=== PATIENT | female | born 1990 | race Caucasian/White ===

== ENCOUNTER 2021-02-10 18:58 | Emergency (ER) | payer SELFPAY ==
[~2021-02-10] VITALS: Ht 167.6 cm; Wt 86.3 kg
--- NOTE | 2021-02-10 21:42 | PHYS DOC ---
Past Medical History Past Medical History shoulder dislocation Past Surgical History: Other Additional Past Surgical Histo: OPEN DISLOCATION TO THE RIGHT SHOULDER. Alcohol Use: None Drug Use: None General Adult EDM: Chief Complaint: SHOULDER INJURY HPI: HPI: 30-year-old female with a history of left shoulder dislocation, shoulder surgery on the left presents the emergency department complaining of deformity of the left shoulder after she was moving some heavy boxes tonight. She states that she feels like the shoulder is out of place, notes limited range of motion of the left shoulder and left arm area. She denies any further pain anywhere else. The patient denies nausea, vomiting, fever, chills, chest pain, shortness of breath, abdominal pain, urinary symptoms, cough, or any other complaints. Review of Systems: Review of Systems: ROS is otherwise negative except for what was mentioned in HPI. Heart Score: C/O Chest Pain: No Current Medications: Current Medications Medications (Trade) Dose Ordered Sig/Jimmy Start Time Stop Time Status Last Admin Dose Admin Ketorolac Tromethamine (Toradol 15mg Vial) 15 mg 1X ONCE 02/10/21 21:45 02/10/21 21:46 UNV Allergies: Allergies: Allergies Coded Allergies Type Severity Reaction Last Updated Verified Sulfa (Sulfonamide Antibiotics) Allergy Unknown 02/10/21 Yes cephalexin Allergy Unknown 02/10/21 Yes ketamine Allergy Unknown 02/10/21 Yes ketorolac Allergy Unknown 02/10/21 Yes Physical Exam: PE: Constitutional: Mild distress, non-toxic appearance. HENT: Atraumatic, bilateral external ears normal, nose normal. Eyes: PERRLA, EOMI, conjunctiva normal, no discharge. Neck: Normal range of motion, supple, no stridor. Cardiovascular: Heart rate regular rhythm. 2+ radial pulses Lungs & Thorax: No respiratory distress, symmetrical expansion. Skin: Warm, dry. Extremities: Deformity and tenderness is noted to the left shoulder Neurologic: Alert and oriented X 3, normal motor function, normal sensory function, no focal deficits noted. Non ataxic gait. GCS 15. Psychologic: Affect normal, judgment normal, mood normal. Current Patient Data: Vital Signs: Vital Signs Date Time Temp Pulse Resp B/P (MAP) Pulse Ox O2 Delivery O2 Flow Rate FiO2 02/10/21 19:30 98.1 78 126/89 (101) 96 Room Air 98.1 Radiology/Procedures: Radiology/Procedures: Indication: Left shoulder dislocation Consent: I have discussed with the patient and/or the patient insurance account representative the indication, alternatives, and the possible risks and /or complications of the planned procedure and the anesthesia methods. The patient and/or patient insurance account representative appear to understand and agree to proceed. Pre-Sedation Documentation and Exam: left shoulder deformity, no acute airway concerns Airway Assessment: normal. Prior History of Anesthesia Complications: none. ASA Classification: I Sedation/ Anesthesia Plan: Propofol, Versed Medications Used: see nursing notes. Monitoring and Safety: The patient was placed on a vehicle monitor technician and vital signs, pulse oximetry and level of consciousness were continuously evaluated throughout the procedure. The patient was closely monitored until recovery from the medications was complete and the patient had returned to baseline status. Respiratory therapy was on standby at all times during the procedure. (The following sections must be completed) Post-Sedation Vital Signs: Refer to nurses notes Post-Sedation Exam: Shoulder appears in anatomic alignment Complications: none. Shoulder reduction procedure Indication: Left shoulder dislocation Anesthesia: See above Technique: Traction/countertraction, Milch procedure, adduction/external rotation XR SHOULDER_LEFT 2+ VIEWS History: Reason: shoulder deformity / Spl. Instructions: / History: Technique: 2 views left shoulder. Comparison: None. Findings: Anterior inferior glenohumeral dislocation. Postoperative changes to the glenoid. Posterior lateral humeral flattening, may relate to Hill-Sachs lesion. No acute fracture. Impression: 1. Left glenohumeral dislocation. Electronically signed by: Brett Hernandez DO (02/10/2021 10:20 PM) PROCEDURE: SHOULDER 2+V LEFT XR SHOULDER_LEFT 2+ VIEWS History: Postreduction Comparison: 02/10/2021 Technique: 2 views the left shoulder. Findings/ impression: There has been interval reduction of a anterior left shoulder dislocation. No acute fractures identified. Redemonstrated anterior glenoid fixation screws. Visualized lungs are clear. Electronically signed by: Ben Buck MD (02/10/2021 11:57 PM) Course & Med Decision Making: Course & Med Decision Making Shoulder was reduced as above, no complications, post reduction x-ray appears to be improved. Patient recovered from anesthesia appropriately. Patient was placed in a shoulder immobilizer and discharged with orthopedic follow-up Departure Departure Impression: Primary Impression: Closed dislocation of left shoulder Disposition: 01 HOME / SELF CARE / HOMELESS Condition: STABLE Referrals: NO PCP (PCP) MILAD ORDOÑEZ DO Patient Instructions: Shoulder Dislocation, Egkt-oc-Dyak Additional Instructions: You were seen in the emergency department and your health condition was deemed not to require admission to the hospital. It is important to realize that we can only evaluate you during the time that you are in her department. Occasionally health conditions can worsen upon leaving the emergency department. If this were to happen, please return to and allow us the opportunity to reevaluate you. It is a pleasure to take care of your health needs. Return to the ER if your symptoms worsen, do not improve, or if you develop additional symptoms that are concerning to you You have been given a prescription for [place]. This medication is a narcotic pain medicine, it is important for to take this medication only as needed and according to its instructions, and not to take at an increased frequency from what is prescribed. Do not mix with alcohol, drive, or operate heavy machinery while on this medication as they can be sedating. Scripts Oxycodone HCl (Oxycodone HCl) 5 Mg Tablet 5 MG PO PRN Q6-8HRS PRN for PAIN for 2 Days, #8 TAB Prov: JUAN J BOJORQUEZ DO 02/11/21 JUAN J BOJORQUEZ DO Feb 10, 2021 21:42
[2021-02-10] MEDS ORDERED: KETOROLAC 15 MG/ML VIAL. IVP ONE (21:45)
[2021-02-10] MEDS ORDERED: IV NORMAL SALINE 1000ML BAG 1,000 ML IV ONE (22:00)
[2021-02-10] MEDS ORDERED: fentaNYL PF VIAL 100 MCG/2 ML VIAL IVP ONE ×2 (22:00→23:00)
--- NOTE | 2021-02-10 22:22 | RAD ---
XR SHOULDER_LEFT 2+ VIEWS History: Reason: shoulder deformity / Spl. Instructions: / History: Technique: 2 views left shoulder. Comparison: None. Findings: Anterior inferior glenohumeral dislocation. Postoperative changes to the glenoid. Posterior lateral h umeral flattening, may relate to Hill-Sachs lesion. No acute fracture. Impression: 1. Left glenohumeral dislocation. Electronically signed by: Brett Hernandez DO (02/10/2021 10:20 PM) [facility]
[2021-02-10] MEDS ORDERED: PROPOFOL 10 MG/ML (20ML) VIAL. IV ONE (23:00)
[2021-02-10] MEDS ORDERED: MIDAZOLAM HCL/PF 2 MG/2 ML VIAL. IV ONE (23:00)
[2021-02-10 23:11] VITALS: BP 143/82
[2021-02-10] MEDS ORDERED: MIDAZOLAM HCL/PF 2 MG/2 ML VIAL. ONE (23:19)
[2021-02-10 23:59] VITALS: BP 119/77
--- NOTE | 2021-02-10 23:59 | RAD ---
XR SHOULDER_LEFT 2+ VIEWS History: Postreduction Comparison: 02/10/2021 Technique: 2 views the left shoulder. Findings/ impression: There has been interval reduction of a anterior left shoulder dislocation. No acute fractures identif ied. Redemonstrated anterior glenoid fixation screws. Visualized lungs are clear. Electronically signed by: Ben Buck MD (02/10/2021 11:57 PM) [facility]
[2021-02-11] MEDS ORDERED: fentaNYL PF VIAL 100 MCG/2 ML VIAL IVP ONE
[2021-02-11] MEDS ORDERED: OXYC5TAB2 PO (00:11)
== END 2021-02-11 00:29 | disposition home or self-care (01) ==
LOC: ER 18:58
DX: S43.005A Unspecified dislocation of left shoulder joint, initial encounter (principal); Z88.1 Allergy status to other antibiotic agents; Z88.2 Allergy status to sulfonamides; Z88.4 Allergy status to anesthetic agent; Z88.6 Allergy status to analgesic agent; X50.9XXA Other and unspecified overexertion or strenuous movements or postures, initial encounter; Y93.89 Activity, other specified; Y92.89 Other specified places as the place of occurrence of the external cause; Y99.8 Other external cause status
CPT/HCPCS: 23650; 73030; 96361; 96374; 99152; 99285; J2704; J3010; J7030

== ENCOUNTER 2021-03-01 10:38 | Emergency (ER) | payer SELFPAY ==
[~2021-03-01] VITALS: Ht 167.6 cm; Wt 83.2 kg
[~2021-03-01 10:38] MED LIST: OXYC5TAB2 PO
[2021-03-01] MEDS ORDERED: IV NORMAL SALINE 1000ML BAG 1,000 ML IV ONE (11:30)
[2021-03-01] MEDS ORDERED: fentaNYL PF VIAL 100 MCG/2 ML VIAL IV ONE ×3 (11:30→13:15)
--- NOTE | 2021-03-01 12:27 | RAD ---
XR SHOULDER_LEFT 2+ VIEWS History: Pain/deformity Comparison: 02/10/2021 Technique: 3 views the left shoulder Findings: Osseous mineralization is normal. Anterior inferior dislocation of the left humeral head. Screw fixat ion is noted at the left anterior glenoid. Upper lungs are clear. Impression: 1. Left anterior inferior shoulder dislocation. Electronically signed by: Ben Buck MD (03/01/2021 12:24 PM) [id number]
--- NOTE | 2021-03-01 12:31 | RAD ---
XR SACRUM AND COCCYX 2+VIEWS History: Pain/deformity. Comparison: 10/26/2017 pelvis radiograph Technique: 3 views of the sacrum and coccyx. Findings: Osseous mineralization is normal. There is a questionable cortical step-off at the right lateral aspe ct of the sacrum, inferior to the sacroiliac joint. Normal alignment at the sacrococcygeal junction. The sacroiliac joints and pubic symphysis are unremarkable. Impression: 1. Question cortical step-off at the right lateral margin of the sacrum just inferior to the sacroil iac joint. Correlate with nature of injury. CT of the pelvis could provide further characterization. Electronically signed by: eBn Buck MD (03/01/2021 12:29 PM) [id number]
[2021-03-01] MEDS ORDERED: ETOMIDATE 20 MG/10 ML VIAL. IV ONE (13:00)
[2021-03-01] MEDS ORDERED: ONDANSETRON PF 4 MG/2 ML VIAL. ONE (13:11)
[2021-03-01] MEDS ORDERED: ONDANSETRON PF 4 MG/2 ML VIAL. IVP ONE (13:15)
--- NOTE | 2021-03-01 13:47 | RAD ---
CT of the pelvis without contrast 03/01/2021 INDICATION: Sacral pain following fall. Abnormality on sacral radiographs. TECHNIQUE: Multidetector CT imaging of the pelvis was performed without contrast. FINDINGS: There is no fracture or dislocation identified. No focal soft tissue abnormalities are iden tified. Hematoma is seen. No other focal abnormalities are identified. IMPRESSION: No evidence of acute fracture or other abnormality CT DOSING PQRS STATEMENT: One or more of the following individualized dose reduction techniques were utilized for this examinat ion: 1. Automated exposure control 2. Adjustment of the mA and/or kV according to patient size 3. Use of iterative reconstruction technique Electronically signed by: Tl Whipple MD (03/01/2021 1:45 PM) [id number]
[2021-03-01] MEDS ORDERED: PROPOFOL 10 MG/ML (20ML) VIAL. IV ONE (14:00)
[2021-03-01 14:15] VITALS: BP 134/88
--- NOTE | 2021-03-01 15:11 | RAD ---
EXAM: XR LT SHOULDER 1 VIEW 03/01/2021 2:42 PM CLINICAL INDICATION: Status post shoulder reduction COMPARISON: Multiple prior exams including 03/01/2021 TECHNIQUE: AP and scapular Y views of the left shoulder FINDINGS: Glenohumeral alignment is improved, although the humeral head may still be slightly anteri or to the glenoid, evaluation limited on AP view due to rotation. No definite fracture. There are scr ews in the anterior glenoid rim. Acromioclavicular joint is unchanged. IMPRESSION: Glenohumeral alignment has improved although the humeral head may still be slightly ante rior to the glenoid on AP view. Electronically signed by: Yane Dyson MD (03/01/2021 3:09 PM) [id number]
[2021-03-01 15:29] VITALS: BP 102/67
--- NOTE | 2021-03-01 15:33 | PHYS DOC ---
Past Medical History Past Medical History: Asthma Additional Past Medical Histor: Frequent left shoulder dislocation Past Surgical History: Other Additional Past Surgical Histo: OPEN DISLOCATION TO THE RIGHT SHOULDER Smoking Status: Current Every Day Smoker Alcohol Use: Rarely Drug Use: None General Adult EDM: Chief Complaint: MECHANICAL FALL HPI: HPI: Patient is a 30-year-old female presents via EMS with report of fall down approximately 10 stairs while going down the stairs with her dog which occurred approximately 30 minutes ago. Patient reports she tripped and subsequently fell down all 10 stairs. Patient denies any head trauma or neck pain. Patient complains of left shoulder pain, right hand pain, and tailbone pain. Patient reports she thinks she fell backwards and tried to catch herself. Patient does have a history of frequent left shoulder dislocations. Patient reports last dislocated approximately 3 weeks ago. Patient denies use of blood thinners. Denies . EMS reports placing c-collar for transport. Review of Systems: Review of Systems: Constitutional: Denies fever or chills Eyes: Denies redness or eye pain HENT: Denies nasal congestion or epistaxis Respiratory: Denies cough or shortness of breath Cardiovascular: Denies chest pain or palpitations GI: Denies abdominal pain, nausea, or vomiting : Denies dysuria or hematuria Musculoskeletal: Denies back pain or neck pain; reports left shoulder pain, right hand pain, and tailbone pain Integument: Denies rash; reports abrasion Neurologic: Denies headache, focal weakness or sensory changes Complete systems were reviewed and found to be within normal limits, except as documented in this note. Heart Score: C/O Chest Pain: N/A Current Medications: Current Medications Medications (Trade) Dose Ordered Sig/Jimmy Start Time Stop Time Status Last Admin Dose Admin Etomidate (Amidate) 10 mg 1X ONCE 03/01/21 13:00 03/01/21 13:56 DC Fentanyl Citrate (Fentanyl 2ml Vial) 50 mcg 1X ONCE 03/01/21 13:15 03/01/21 13:16 DC 03/01/21 13:14 50 MCG Ondansetron HCl (Zofran) 4 mg STK-MED ONCE 03/01/21 13:11 03/01/21 13:12 DC Propofol (Diprivan) 50 mg 1X ONCE 03/01/21 14:00 03/01/21 14:01 DC 03/01/21 14:20 50 MG Sodium Chloride 1,000 ml @ 1,000 mls/hr 1X ONCE 03/01/21 11:30 03/01/21 12:29 DC 03/01/21 11:40 1,000 MLS/HR Allergies: Allergies: Allergies Coded Allergies Type Severity Reaction Last Updated Verified Sulfa (Sulfonamide Antibiotics) Allergy Intermediate 02/10/21 Yes cephalexin Allergy Intermediate 02/10/21 Yes ketamine Allergy Intermediate 02/10/21 Yes ketorolac Allergy Intermediate 02/10/21 Yes Physical Exam: PE: Constitutional: Well developed, well nourished, no acute distress, non-toxic appearance HENT: Normocephalic, atraumatic, TMs clear, mastoid process normal, nares clear Eyes: PERRL, EOMI, conjunctiva normal, no discharge, no nystagmus Neck: C-collar in place, supple Lungs & Thorax: No respiratory distress, equal chest rise and fall Abdomen: Soft, no tenderness; pelvis stable and nontender Skin: Warm, dry, no erythema, no rash Back: Sacral and coccyx tenderness, no midline lumbar or thoracic tenderness on palpation, no CVA tenderness Extremities: Left shoulder glenohumeral tenderness with deformity, range of motion limited due to pain, left radial pulse +2, sensation intact, no edema Neurologic: Alert and oriented X 3, normal motor function, normal sensory function, no focal deficits noted Psychologic: Affect normal, judgment normal Current Patient Data: Vital Signs: Vital Signs Date Time Temp Pulse Resp B/P (MAP) Pulse Ox O2 Delivery O2 Flow Rate FiO2 03/01/21 14:18 20 100 High Flow Nasal Cannula 2.0 03/01/21 14:15 68 134/88 66 61 03/01/21 10:45 98.4 98.4 EKG: EKG: [] Radiology/Procedures: Radiology/Procedures: PROCEDURE: SACRUM & COCCYX 3V XR SACRUM AND COCCYX 2+VIEWS History: Pain/deformity. Comparison: 10/26/2017 pelvis radiograph Technique: 3 views of the sacrum and coccyx. Findings: Osseous mineralization is normal. There is a questionable cortical step-off at the right lateral aspect of the sacrum, inferior to the sacroiliac joint. Normal alignment at the sacrococcygeal junction. The sacroiliac joints and pubic symphysis are unremarkable. Impression: 1. Question cortical step-off at the right lateral margin of the sacrum just inferior to the sacroiliac joint. Correlate with nature of injury. CT of the pelvis could provide further characterization. Electronically signed by: Ben Buck MD (03/01/2021 12:29 PM) [id number] PROCEDURE: SHOULDER 2+V LEFT XR SHOULDER_LEFT 2+ VIEWS History: Pain/deformity Comparison: 02/10/2021 Technique: 3 views the left shoulder Findings: Osseous mineralization is normal. Anterior inferior dislocation of the left humeral head. Screw fixation is noted at the left anterior glenoid. Upper lungs are clear. Impression: 1. Left anterior inferior shoulder dislocation. Electronically signed by: Ben Buck MD (03/01/2021 12:24 PM) [id number] PROCEDURE: CT PELVIS WO CONTRAST CT of the pelvis without contrast 03/01/2021 INDICATION: Sacral pain following fall. Abnormality on sacral radiographs. TECHNIQUE: Multidetector CT imaging of the pelvis was performed without contrast. FINDINGS: There is no fracture or dislocation identified. No focal soft tissue abnormalities are identified. Hematoma is seen. No other focal abnormalities are identified. IMPRESSION: No evidence of acute fracture or other abnormality CT DOSING PQRS STATEMENT: One or more of the following individualized dose reduction techniques were utilized for this examination: 1. Automated exposure control 2. Adjustment of the mA and/or kV according to patient size 3. Use of iterative reconstruction technique Electronically signed by: Tl Whipple MD (03/01/2021 1:45 PM) [id number] PROCEDURE: SHOULDER LEFT 1V EXAM: XR LT SHOULDER 1 VIEW 03/01/2021 2:42 PM CLINICAL INDICATION: Status post shoulder reduction COMPARISON: Multiple prior exams including 03/01/2021 TECHNIQUE: AP and scapular Y views of the left shoulder FINDINGS: Glenohumeral alignment is improved, although the humeral head may still be slightly anterior to the glenoid, evaluation limited on AP view due to rotation. No definite fracture. There are screws in the anterior glenoid rim. Acromioclavicular joint is unchanged. IMPRESSION: Glenohumeral alignment has improved although the humeral head may still be slightly anterior to the glenoid on AP view. Electronically signed by: Yane Dyson MD (03/01/2021 3:09 PM) [id number] Course & Med Decision Making: Course & Med Decision Making Pertinent Labs and Imaging studies reviewed. (See chart for details) Patient presents via EMS with report of fall down approximately 10 stairs prior to arrival. Patient denies any loss of consciousness or neck pain. Patient complaining of left shoulder pain with history of recent dislocation. Deformity noted. X-ray obtained with confirmation of anterior shoulder dislocation. CT head/cervical spine obtained without acute finding. C-collar cleared. Patient also complains of sacral/coccyx pain. X-ray with subtle abnormality that cannot exclude fracture. CT pelvis therefore obtained without acute finding. Pain addressed. Moderate sedation performed with manipulation of left shoulder and successful reduction. Patient did require significant amount of medication. A total of 200 mcg of fentanyl and 300 mg of propofol utilized in stepwise fashion in order to achieve successful sedation. A shoulder immobilizer placed. Patient stable for discharge with outpatient follow-up with PCP/orthopedics. Orthopedic referral provided. Discussed findings and plan with patient, who acknowledges understanding and agreement. Aury Disclaimer: Aury Disclaimer: This electronic medical record was generated, in whole or in part, using a voice recognition dictation system. Splinting Splinting : Location: Left shoulder Pre-Made Type: Shoulder immobilizer Pre-Proc Neuro Vasc Exam: normal Post-Proc Neuro Vasc Exam: normal, unchanged from pre-exam Joint Reduction Joint Reduction : Joint Reduction Site: shoulder (L) Conscious Sedation: Yes Reduction Attempts: 1 Pre-Procedure NV Exam: Yes Post-Procedure NV Exam: Yes Post Joint Reduction Film: joint reduced Progress Written consent obtained. Time out performed. Hand hygiene utilized. Cardiac monitoring and pulse oximeter in place. End tidal CO2 also in place. Moderate sedation performed with stepwise approach with subsequent totals of 200mcg of Fentanyl and 300mg of Propofol to obtain adequate sedation in order to performed manipulation of shoulder with traction and counter-traction. Successful reduction performed. Shoulder immobilizer placed. Repeat XR confirmed good location. Patient tolerated procedure well and without difficulty. Departure Departure Impression: Primary Impression: Shoulder dislocation Qualified Codes: S43.005A - Unspecified dislocation of left shoulder joint, initial encounter Additional Impressions: Fall down stairs Qualified Codes: W10.8XXA - Fall (on) (from) other stairs and steps, initial encounter Sacral contusion Qualified Codes: S30.0XXA - Contusion of lower back and pelvis, initial encounter Disposition: HOME / SELF CARE / HOMELESS Condition: STABLE Referrals: NO PCP (PCP) KHANH BASS DO Patient Instructions: Contusion, [id number], Fall Prevention and Home Safety, [id number], Sedation, Moderate, Adult, Shoulder Dislocation, [id number], Shoulder Immobilizer Additional Instructions: ICE areas of discomfort 20 minutes on then leave off next 20 minutes. Repeat several times daily for the next few days. May also use [id number]-[id number] ibuprofen as needed for pain. Scripts Oxycodone Hcl (OXYCODONE HCL IMMED.RELEASE ) 5 Mg Tablet 0.5-1 TAB PO PRN Q6HRS PRN for PAIN, #10 TAB 0 Refills Prov: MILAD POSADAS DO 03/01/21 MODERATE SEDATION ASSESSMENT* RISKS/ALTERNATIVES Risks/Alternatives Risks and alternatives of this type of sedation and procedure discussed with: RISK/ALTERNATIVES: Patient H & P ON CHART H & P H & P on chart and reviewed for co-morbid conditions and appropriate labs. H&P ON CHART: Yes STATUS PREG STATUS ASSESSED: Yes MEDS/ALLERGIES REVIEWED Meds/Allergies Reviewed Medications and Allergies including time and route of recently administered narcotics and sedatives. MEDS/ALLERGIES REVIEWED: Yes ASA RATING ASA RATING: I AIRWAY ASSESSMENT Airway Assessment Airway patency, oral function limitations, presence of caps, crowns, dentures, partials, and ability to extend neck assessed. AIRWAY ASSESSMENT: Yes MALLAMPATI SCORE MALLAMPATI SCORE: II PRE-SEDATION ASSESSMENT PRE-SEDATION ASSESSMENT: Yes MILAD POSADAS DO Mar 01, 2021 15:32
[2021-03-01] MEDS ORDERED: OXYC5TAB4 PO (15:43)
== END 2021-03-01 16:18 | disposition home or self-care (01) ==
LOC: ER 10:38
DX: S43.005A Unspecified dislocation of left shoulder joint, initial encounter (principal); S30.0XXA Contusion of lower back and pelvis, initial encounter; M53.3 Sacrococcygeal disorders, not elsewhere classified; F17.200 Nicotine dependence, unspecified, uncomplicated; Z88.1 Allergy status to other antibiotic agents; Z88.2 Allergy status to sulfonamides; Z88.4 Allergy status to anesthetic agent; Z88.6 Allergy status to analgesic agent; W18.39XA Other fall on same level, initial encounter; Y93.89 Activity, other specified; Y92.89 Other specified places as the place of occurrence of the external cause; Y99.8 Other external cause status
CPT/HCPCS: 23650; 72192; 72220; 73020; 73030; 96361; 96374; 99152; 99285; J2405; J2704; J3010; J7030; 96375; 96376

== ENCOUNTER 2021-03-22 17:12 | Emergency (ER) | payer MEDICAID ==
[~2021-03-22] VITALS: Ht 167.6 cm; Wt 80.0 kg
[~2021-03-22 17:12] MED LIST changes: +OXYC5TAB4 PO
[2021-03-22] MEDS ORDERED: IV NORMAL SALINE 1000ML BAG 1,000 ML IV ONE (18:30)
[2021-03-22 18:49] LABS: CALCIUM 9.1 mg/dL (8.5-10.1); CREATININE 0.9 mg/dL (0.6-1.0); GFR 72.6; POTASSIUM 3.5 mmol/L (3.5-5.1)
[2021-03-22 18:54] LABS: ALBUMIN 4.3 g/dL (3.4-5.0); ALBUMIN/GLOBULIN RATIO 1.1 (1.0-1.7); TOTAL BILIRUBIN 0.6 mg/dL (0.2-1.0); TOTAL PROTEIN 8.1 g/dL (6.4-8.2)
[2021-03-22 18:55] LABS: BASO % 1 % (0-3); EOS % 1 % (0-3); HEMOGLOBIN 15.5 g/dL (12.0-15.5); LYMPH # 1.9 x10^3/uL (1.0-4.8); LYMPH % 26 % (24-48); MEAN CORPUSCULAR HEMOGLOBIN 31 pg (25-35); MEAN CORPUSCULAR HGB CONC 35 g/dL (31-37); MEAN CORPUSCULAR VOLUME 89 fL (79-100); MONO # 0.4 x10^3/uL (0.0-1.1); MONO % 5 % (0-9); NEUT % 68 % (31-73); PLATELET COUNT 278 x10^3/uL (140-400); RED BLOOD COUNT 4.93 x10^6/uL (3.50-5.40); RED CELL DISTRIBUTION WIDTH 11.8 % (11.5-14.5); WHITE BLOOD COUNT 7.4 x10^3/uL (4.0-11.0)
--- NOTE | 2021-03-22 19:10 | EKG ---
[facility] [address] [place] [address] Test Date: 2021-03-22 Test Time: 18:44:42 Pat Name: JOSE RAMON VILLAGRAN Department: Room: Gender: F [employer]: : 1990 Requested By: MARCUS GARRIDO Order Number: [id number] Reading MD: Saud Veronica MD Measurements Intervals [place] Rate: 61 P: 28 NE: 122 QRS: 0 QRSD: 80 T: 1 QT: 400 QTc: 404 Interpretive Statements SINUS RHYTHM Electronically Signed On 03-23-2021 17:31:34 CDT by Saud Veronica MD
--- NOTE | 2021-03-22 19:30 | RAD ---
Left shoulder AP and scapular x-rays 3 views HISTORY: Left shoulder dislocation. COMPARISON: Left shoulder x-rays March 01, 2021 FINDINGS: There are 2 screws across the anterior glenoid again demonstrated perhaps for treatment of shoulder instability. There is a recurrent anterior humeral head dislocation. Mild superior distracti on of the lateral clavicle at the acromioclavicular joint is stable likely due to an old injury. No f racture evident. IMPRESSION: Recurrent anterior humeral head dislocation. Electronically signed by: Talha Richards MD (03/22/2021 7:28 PM) [facility]
[2021-03-22 19:31] LABS: PREG TEST PT QUAL NEGATIVE (NEG)
--- NOTE | 2021-03-22 19:41 | PHYS DOC ---
Past Medical History Past Medical History: Asthma Additional Past Medical Histor: Shoulder dislocation x 3 Past Surgical History: No Surgical History Additional Past Surgical Histo: OPEN DISLOCATION TO THE RIGHT SHOULDER Smoking Status: Current Every Day Smoker Alcohol Use: Occasionally Drug Use: None General Adult EDM: Chief Complaint: SHOULDER INJURY HPI: HPI: 30-year-old female past medical history significant for asthma with recurrent shoulder dislocations (2x in February, left shoulder), presents the ED with complaints of left shoulder pain stating " I fainted and landed on the left side on a carpeted floor." 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 Reports she has not eaten in a few days and has only slept 3 to 4 hours. Patient states she is just been so busy and forgets to eat. Denies any alcohol, drug use. Is not on any blood thinners. Does not believe she hit her head but is unsure how she landed. Denies any history of prior head or neck trauma. No associated incontinence or bleeding.Had no preceding symptoms prior to passing out. Reports she is not sexually active and has been on her menses. No personal or family history of cardiac disease. Pt states "60mg of propofol works but I have a high tolerance." Review of Systems: Review of Systems: Constitutional: Denies fever or chills. [] Eyes: Denies change in visual acuity. [] HENT: Denies nasal congestion or sore throat. [] Respiratory: Denies cough or shortness of breath or hemoptysis Cardiovascular: Denies chest pain or edema. [] GI: Denies abdominal pain, nausea, vomiting, bloody stools or diarrhea. [] : Denies incontinence or vaginal bleeding Musculoskeletal: Denies back pain or flank pain Integument: Denies rash or diaphoresis Neurologic: Denies headache, focal weakness or sensory changes. [] Endocrine: Denies polyuria or polydipsia. [] Lymphatic: Denies swollen glands. [] Psychiatric: Denies depression or anxiety. [] Heart Score: C/O Chest Pain: No Risk Factors: Risk Factors: DM, Current or recent (<one month) smoker, HTN, HLP, family history of CAD, obesity. Risk Scores: Score 0 - 3: 2.5% MACE over next 6 weeks - Discharge Home Score 4 - 6: 20.3% MACE over next 6 weeks - Admit for Clinical Observation Score 7 - 10: 72.7% MACE over next 6 weeks - Early Invasive Strategies Current Medications: Current Medications Medications (Trade) Dose Ordered Sig/Jimmy Start Time Stop Time Status Last Admin Dose Admin Propofol (Diprivan) 120 mg 1X ONCE 03/22/21 20:00 03/22/21 20:01 Sodium Chloride 1,000 ml @ 1,000 mls/hr 1X ONCE 03/22/21 18:30 03/22/21 19:29 DC Allergies: Allergies: Allergies Coded Allergies Type Severity Reaction Last Updated Verified Sulfa (Sulfonamide Antibiotics) Allergy Intermediate 02/10/21 Yes cephalexin Allergy Intermediate 02/10/21 Yes ketamine Allergy Intermediate 02/10/21 Yes ketorolac Allergy Intermediate 02/10/21 Yes Physical Exam: PE: Constitutional: Well developed, well nourished, no acute distress, non-toxic appearance. HENT: Normocephalic, atraumatic, Eyes: PERRLA, EOMI, conjunctiva normal, no discharge. Neck: Normal range of motion, supple, no midline neck pain Cardiovascular: S1/2 present, regular rhythm Lungs & Thorax: Speaking in full sentences, bilateral equal chest rise, no tachypnea or increased work of breathing Abdomen: soft, no tenderness, Skin: Warm, dry, no erythema, no rash. [] Back: No midline spinal step-offs or tenderness, no CVA tenderness. [] Extremities: Very tender, rounded anterior left shoulder-left arm held across chest, equal radial pulses, normal axillary/radial/median/ulnar nerve sensation intact, cap refill less than 1 second Neurologic: Alert and oriented X 3, normal motor function, normal sensory function, no focal deficits noted. [] Psychologic: Affect normal, judgement normal, mood normal. [] Current Patient Data: Labs: Laboratory Tests Test 03/22/21 18:15 White Blood Count 7.4 x10^3/uL (4.0-11.0) Red Blood Count 4.93 x10^6/uL (3.50-5.40) Hemoglobin 15.5 g/dL (12.0-15.5) Hematocrit 44.0 % (36.0-47.0) Mean Corpuscular Volume 89 fL (79-100) Mean Corpuscular Hemoglobin 31 pg (25-35) Mean Corpuscular Hemoglobin Concent 35 g/dL (31-37) Red Cell Distribution Width 11.8 % (11.5-14.5) Platelet Count 278 x10^3/uL (140-400) Neutrophils (%) (Auto) 68 % (31-73) Lymphocytes (%) (Auto) 26 % (24-48) Monocytes (%) (Auto) 5 % (0-9) Eosinophils (%) (Auto) 1 % (0-3) Basophils (%) (Auto) 1 % (0-3) Neutrophils # (Auto) 5.0 x10^3/uL (1.8-7.7) Lymphocytes # (Auto) 1.9 x10^3/uL (1.0-4.8) Monocytes # (Auto) 0.4 x10^3/uL (0.0-1.1) Eosinophils # (Auto) 0.0 x10^3/uL (0.0-0.7) Basophils # (Auto) 0.0 x10^3/uL (0.0-0.2) Sodium Level 139 mmol/L (136-145) Potassium Level 3.5 mmol/L (3.5-5.1) Chloride Level 102 mmol/L (98-107) Carbon Dioxide Level 26 mmol/L (21-32) Anion Gap 11 (6-14) Blood Urea Nitrogen 6 mg/dL (7-20) L Creatinine 0.9 mg/dL (0.6-1.0) Estimated GFR (Cockcroft-Gault) 72.6 BUN/Creatinine Ratio 7 (6-20) Glucose Level 87 mg/dL (70-99) Calcium Level 9.1 mg/dL (8.5-10.1) Total Bilirubin 0.6 mg/dL (0.2-1.0) Aspartate Amino Transferase (AST) 16 U/L (15-37) Alanine Aminotransferase (ALT) 30 U/L (14-59) Alkaline Phosphatase 49 U/L (46-116) Troponin I Quantitative < 0.017 ng/mL (0.000-0.055) Total Protein 8.1 g/dL (6.4-8.2) Albumin 4.3 g/dL (3.4-5.0) Albumin/Globulin Ratio 1.1 (1.0-1.7) Serum Test, Qualitative Negative (NEG) Laboratory Tests 03/22/21 18:15 Laboratory Tests 03/22/21 18:15 Vital Signs: Vital Signs Date Time Temp Pulse Resp B/P (MAP) Pulse Ox O2 Delivery O2 Flow Rate FiO2 03/22/21 18:09 98.4 86 20 137/91 (106) 100 Room Air 98.4 EKG: EKG: Sinus rhythm 61 bpm, no axis deviation, normal intervals, T wave inversion lead III, no ST elevation or ST depression, no active chest pain Radiology/Procedures: Radiology/Procedures: IMAGING REPORT Signed PATIENT: JOSE RAMON VILLAGRAN ACCOUNT: [id number] : 1990 LOCATION: ER AGE: 30 SEX: F EXAM STATUS: REG ER ORD. PHYSICIAN: MARCUS GARRIDO DO REASON: left sh oudler dislocation PROCEDURE: SHOULDER 2+V LEFT Left shoulder AP and scapular x-rays 3 views HISTORY: Left shoulder dislocation. COMPARISON: Left shoulder x-rays March 01, 2021 FINDINGS: There are 2 screws across the anterior glenoid again demonstrated perhaps for treatment of shoulder instability. There is a recurrent anterior humeral head dislocation. Mild superior distraction of the lateral clavicle at the acromioclavicular joint is stable likely due to an old injury. No fracture evident. IMPRESSION: Recurrent anterior humeral head dislocation. Electronically signed by: Jas Richards MD (03/22/2021 7:28 PM) [facility] REPORT Signed PATIENT: JOSE RAMON VILLAGRAN ACCOUNT: [id number] : 1990 LOCATION: ER AGE: 30 SEX: F EXAM STATUS: REG ER ORD. PHYSICIAN: MARCUS GARRIDO DO REASON: Post reduction x-ray PROCEDURE: SHOULDER 2+V LEFT EXAM: 2 Views Left Shoulder DATE: 03/22/2021 9:58 PM INDICATION: Reason: Post reduction x-ray / Spl. Instructions: / History: COMPARISON: 03/22/2021 FINDINGS/ IMPRESSION: Changes of prior glenoid fixation improved alignment of the left glenohumeral joint. Trace AC joint offset is unchanged, age-indeterminate, but likely chronic, low-grade AC joint injury. Electronically signed by: Samir Cruz MD (03/22/2021 10:00 PM) [facility] DI[facility] and SIGNED BY: SAMIR CRUZ MD DATE: 03/22/[id number] 0 DICTATED and SIGNED BY: JAS RICHARDS MD DATE: 03/22/[id number] 0 Indication: Joint dislocation Consent: Consent was obtained. Procedure: The pre-reduction exam showed distal perfusion and neurologic function to be normal.. The patient was placed in the appropriate position. Anesthesia/pain control -SEE SEDATION NOTE. Reduction of the left anterior shoulder dislocation was performed by traction and countertraction method. Post reduction films were obtained and revealed satisfactory reduction. A post- reduction exam revealed distal perfusion and neurologic function to be normal (intact axillary/median/ulnar/radial sensation, equal radial pulses). The affected area was immobilized with a shoulder immobilizer. The patient tolerated the procedure well. Complications: none. Indication: Left anterior shoulder dislocation Consent: I have discussed with the patient/or the patient data entry representative the indication, alternatives, and the possible risks and/or complications of the planned procedure and the anesthesia methods. The patient and/or patient data entry representative appear to understand and agree to proceed. Pre-Sedation Documentation and Exam: GCS 15, alert and oriented x3 Airway assessment: Normal Prior History of Anesthesia Complications: None ASA Classification: ASA 1 Sedation/Anesthesia Plan: Propofol, fentanyl and Versed. Pt was initially given 125 mg of propofol with no response-was mildly sleepy but able to speak in full sentences and asked us to stop reduction. Fentanyl and Versed were given with a similar response-patient was more drowsy but still able to resist reduction. Patient was given 60 mg of propofol with adequate sedation/starting respirations and shoulder was easily reduced. Nasal cannula was applied for oxygen support given snoring respirations and patient was placed upright for airway protection. Medications Used: See nursing notes. Monitoring and Safety: The patient was placed on a voice pathologist and vital signs, pulse oximetry, and level of consciousness were continuously evaluated throughout the procedure. The patient was closely monitored until recovery from the medications was complete and the patient had returned to baseline status. Respiratory therapy was at bedside at all time during the procedure. (The following section must be completed) Post-Sedation Vital Signs: Hemodynamically stable, see nursing note Post-Sedation Exam: Ambulatory, with medical decision-making capacity Complications: none Course & Med Decision Making: Course & Med Decision Making Pertinent Labs and Imaging studies reviewed. (See chart for details) Encounter for left anterior closed shoulder dislocation with adequate reduction. No neurovascular deficits following reduction. Patient was able to ambulate and tolerate food after reduction. Patient with medical decision making capacity and reports she does not believe she needs any imaging of her head or neck stating "I was only out for a few seconds, I don't think I hit my head." Pt denies any headache or midline neck pain. No evidence of blunt head/neck trauma on physical exam. Despite my encouragement, pt refusing CT imaging. States she feels well and wishes to be discharged home. Will discharge home with strict ED return precautions were given for severe headache, intractable nausea vomiting, neck pain or neurologic deficits. Encouraged urgent outpatient follow-up with PMD and orthopedic surgery for definitive management. Life-threatening processes were considered but are low suspicion at this time, given history, physical exam and ED workup. Pt was educated on all prescription medications and adverse effects. All patient's questions were answered and pt was stable at t neeta of discharge. Life/limb-threatening differential includes but is not limited to, avascular necrosis, septic arthritis, malignancy, compartment syndrome, fracture/ligamentous injury/overuse, decompression sickness, seronegative spondyloarthropathies, trauma including dislocation/fracture, Lyme disease, lupus, arthritis differentials, gout/pseudogout or decompression sickness. I have spoken with the patient and/or caregivers. I explained the patient's condition, diagnoses and treatment plan based on the information available to me at this time. I have answered the patient and/or caregiver's questions and addressed any concerns. The patient and/or caregivers have a good understanding of patient's diagnosis, condition and treatment plan as can be expected at this point. Vital signs have been stable. Patient's condition is stable and appropriate for discharge from the emergency department. Patient will pursue further outpatient evaluation with primary care physician or other designated or consulting physician as outlined in the discharge instructions. The patient and/or caregivers are agreeable to this plan of care and follow-up instructions have been explained in detail. The patient and/or caregivers have received these instructions in written form and have expressed an understanding of the discharge instructions. The patient and/or caregivers are aware that any significant change of condition or worsening of symptoms should prompt immediate return to this or the closest emergency department or call to 911. Aury Disclaimer: Aury Disclaimer: This electronic medical record was generated, in whole or in part, using a voice recognition dictation system. Departure Departure Impression: Primary Impression: Closed anterior dislocation of left shoulder Disposition: HOME / SELF CARE / HOMELESS Condition: STABLE Referrals: NO PCP (PCP) Follow-up with your primary care physician in 24 to 48 hours OR FOLLOW UP WITH FAMILY MEDICINE: [address], [address] [place] [address] Patient Instructions: Sedation, Moderate, Adult, Shoulder Dislocation Additional Instructions: FOLLOW UP WITH ORTHOPEDICS: FOR DEFINITIVE MANAGEMENT of chronic left shoulder dislocations Orthopaedic Surgery [address] [place], [address] [place] [address] EMERGENCY DEPARTMENT GENERAL DISCHARGE INSTRUCTIONS Thank you for coming to [facility] Emergency Department (ED) today and trusting us with you care. We trust that you had a positive experience in our Emergency Department. If you wish to speak to the department management, you may call the Director at [phone]. YOUR FOLLOW UP INSTRUCTIONS ARE FOLLOWS: 1. Do you have a private Doctor? If you do not have a private doctor, please ask for a resource list of physicians or clinics that may be able to assist you with follow up care. 2. The Emergency Physicain has interpreted your x-rays. The X-Ray specialist will also review them. If there is a change in the findings, you will be notified in 48 hours when at all possible. 3. A lab test or culture has been done, your results will be reviewed and you will be notified if you need a change in treatment. ADDITIONAL INSTRUCTIONS AND INFORMATION: 1. Your care today has been supervised by a physician who is specially trained in emergency care. Many problems require more than one evaluation for a complete diagnosis and treatment. We recommend that you schedule your follow up appointment as recommended to ensure complete treatment of you illness or injury. If you are unable to obtain follow up care and continue to have a problem, or if your condition worsens, we recommend that you return to the ED. 2. We are not able to safely determine your condition over the phone nor are we able to give sound medical advice over the phone. For these safety reasons, if you call for medical advice we will ask you to come to the ED for further evaluation. 3. If you have any questions regarding these discharge instructions please call the ED at [phone]. SAFETY INFORMATION: In the interest of safety, wellness, and injury prevention; we encourage you to wear your sealbelt, if you smoke; quite smoking, and we encourage family to use a protective helmet for bicycling and other sporting events that present an increased risk for head injury. IF YOUR SYMPTOMS WORSEN OR NEW SYMPTOMS DEVELOP, OR YOU HAVE CONCERNS ABOUT YOUR CONDITION; OR IF YOUR CONDITION WORSENS WHILE YOU ARE WAITING FOR YOUR FOLLOW UP APPOINTMENT; EITHER CONTACT YOUR PRIMARY CARE DOCTOR, THE PHYSICIAN WHOSE NAME AND NUMBER YOU WERE GIVEN, OR RETURN TO THE ED IMMEDIATELY. MARCUS METZ DO Mar 22, 2021 19:41
[2021-03-22] MEDS ORDERED: PROPOFOL 10 MG/ML (20ML) VIAL. IV ONE (20:00)
[2021-03-22] MEDS ORDERED: fentaNYL PF VIAL 100 MCG/2 ML VIAL IVP ONE (20:00)
[2021-03-22 21:18] VITALS: BP 137/83
[2021-03-22] MEDS ORDERED: MIDAZOLAM HCL/PF 5 MG/5 ML VIAL. ONE ×2 (21:33→21:39)
[2021-03-22] MEDS ORDERED: fentaNYL PF VIAL 100 MCG/2 ML VIAL ONE ×2 (21:33→21:40)
--- NOTE | 2021-03-22 22:03 | RAD ---
EXAM: 2 Views Left Shoulder DATE: 03/22/2021 9:58 PM INDICATION: Reason: Post reduction x-ray / Spl. Instructions: / History: COMPARISON: 03/22/2021 FINDINGS/ IMPRESSION: Changes of prior glenoid fixation improved alignment of the left glenohumeral joint. Trace AC joint o ffset is unchanged, age-indeterminate, but likely chronic, low-grade AC joint injury. Electronically signed by: Samir Farris MD (03/22/2021 10:00 PM) [facility]
[2021-03-22 22:20] VITALS: BP 125/79
== END 2021-03-22 22:44 | disposition home or self-care (01) ==
LOC: ER 17:12
DX: S43.005A Unspecified dislocation of left shoulder joint, initial encounter (principal); J45.909 Unspecified asthma, uncomplicated; F17.200 Nicotine dependence, unspecified, uncomplicated; Z88.2 Allergy status to sulfonamides; Z88.1 Allergy status to other antibiotic agents; Z88.8 Allergy status to other drugs, medicaments and biological substances; W18.39XA Other fall on same level, initial encounter; Y93.89 Activity, other specified; Y92.89 Other specified places as the place of occurrence of the external cause; Y99.8 Other external cause status
CPT/HCPCS: 23650; 36415; 73030; 80053; 84484; 84703; 85025; 93005; 96360; 96361; 99152; 99285; J3010; J7030

== ENCOUNTER 2021-04-02 10:55 | Emergency (ER) | payer MEDICAID ==
[~2021-04-02] VITALS: Ht 167.6 cm; Wt 79.8 kg
--- NOTE | 2021-04-02 11:56 | RAD ---
EXAM: Left shoulder, 3 views. HISTORY: Pain. COMPARISON: 03/22/2021 FINDINGS: 3 views of left shoulder obtained. There is anterior shoulder dislocation. There are fixati on screws within the glenoid and there is suspected chronic mild subluxation of the acromial clavicul ar joint. There is chronic deformity of the coracoid process of the scapula which may be postoperativ e. IMPRESSION: Left shoulder dislocation. Unchanged acromioclavicular joint subluxation. Electronically signed by: Vivienne Smith MD (04/02/2021 11:54 AM) [id number]
--- NOTE | 2021-04-02 12:17 | PHYS DOC ---
Past Medical History Past Medical History: Asthma Additional Past Medical Histor: Shoulder dislocation x 3, surgery in 2019 Past Surgical History: Other Additional Past Surgical Histo: OPEN DISLOCATION TO THE RIGHT SHOULDER Smoking Status: Light Tobacco Smoker Alcohol Use: None Drug Use: None General Adult EDM: Chief Complaint: SHOULDER INJURY HPI: HPI: 30-year-old female past medical history significant for asthma with recurrent shoulder dislocations presents to the ED with complaints of left shoulder pain stating she went to lift something up last night at work around 11 PM when she felt her left shoulder dislocate. Reports she has been told by orthopedic surgery they cannot repair her left rotator cuff. Pt is known to myself-seen a few weeks ago for left shoulder dislocation, required reduction with propofol. Review of Systems: Review of Systems: Constitutional: Denies fever or chills. [] Eyes: Denies change in visual acuity. [] HENT: Denies nasal congestion or sore throat. [] Respiratory: Denies cough or shortness of breath. [] Cardiovascular: Denies chest pain or edema. [] GI: Denies nausea or vomiting : Denies dysuria or vaginal bleeding Musculoskeletal: Denies back pain or flank pain Integument: Denies rash or diaphoresis Neurologic: Denies headache, focal weakness or sensory changes. [] Psychiatric: Denies depression or anxiety. [] Heart Score: C/O Chest Pain: No Risk Factors: Risk Factors: DM, Current or recent (<one month) smoker, HTN, HLP, family history of CAD, obesity. Risk Scores: Score 0 - 3: 2.5% MACE over next 6 weeks - Discharge Home Score 4 - 6: 20.3% MACE over next 6 weeks - Admit for Clinical Observation Score 7 - 10: 72.7% MACE over next 6 weeks - Early Invasive Strategies Allergies: Allergies: Allergies Coded Allergies Type Severity Reaction Last Updated Verified Sulfa (Sulfonamide Antibiotics) Allergy Intermediate 02/10/21 Yes cephalexin Allergy Intermediate 02/10/21 Yes ketamine Allergy Intermediate 02/10/21 Yes ketorolac Allergy Intermediate 02/10/21 Yes Physical Exam: PE: Constitutional: Well developed, well nourished, no acute distress, non-toxic appearance. HENT: Normocephalic, atraumatic, Eyes: EOMI, conjunctiva normal, no discharge. Neck: Normal range of motion, supple, no midline neck pain Cardiovascular: S1/2 present, regular rhythm Lungs & Thorax: Speaking in full sentences, bilateral equal chest rise, no tachypnea or increased work of breathing Skin: Warm, dry, no erythema, no rash. [] Back: No midline spinal step-offs or tenderness, no CVA tenderness. [] Extremities: Left anterior shoulder tenderness to palpation with normal axillary/median/radial/ulnar nerve sensation intact, equal radial pulses, no pain over left elbow or wrist Neurologic: Alert and oriented X 3, normal motor function, normal sensory function, no focal deficits noted. [] Psychologic: Affect normal, judgement normal, mood normal. [] Current Patient Data: Vital Signs: Vital Signs Date Time Temp Pulse Resp B/P (MAP) Pulse Ox O2 Delivery O2 Flow Rate FiO2 04/02/21 11:36 98.7 82 16 135/87 (103) 99 Room Air 98.7 EKG: EKG: [] Radiology/Procedures: Radiology/Procedures: IMAGING REPORT Signed PATIENT: JOSE RAMON VILLAGRAN ACCOUNT: [id number] : 1990 LOCATION: ER AGE: 30 SEX: F EXAM STATUS: PRE ER ORD. PHYSICIAN: MARCUS GARRIDO DO REASON: left shoulder pain PROCEDURE: SHOULDER 2+V LEFT EXAM: Left shoulder, 3 views. HISTORY: Pain. COMPARISON: 03/22/2021 FINDINGS: 3 views of left shoulder obtained. There is anterior shoulder dislocation. There are fixation screws within the glenoid and there is suspected chronic mild subluxation of the acromial clavicular joint. There is chronic deformity of the coracoid process of the scapula which may be postoperative. IMPRESSION: Left shoulder dislocation. Unchanged acromioclavicular joint subluxation. Electronically signed by: Vivienne Morales MD (04/02/2021 11:54 AM) [id number] DICTATED and SIGNED BY: VIVIENNE MORALES MD DATE: 04/02/21 [id number] IMAGING REPORT Signed PATIENT: JOSE RAMON VILLAGRAN ACCOUNT: [id number] : 1990 LOCATION: ER AGE: 30 SEX: F EXAM STATUS: REG ER ORD. PHYSICIAN: CHANEL RAPP APRN REASON: POST REDUCTION PROCEDURE: SHOULDER 2+V LEFT Exam Date: 04/02/2021 2:22 PM XR SHOULDER_LEFT 2+ VIEWS Indication: Reason: POST REDUCTION / Spl. Instructions: / History: . COMPARISON: Radiographs from earlier the same day FINDINGS/ IMPRESSION: Suspected interval relocation of previously seen glenohumeral joint dislocation, though evaluation is suboptimal in the absence of axillary or tangential views. Elevation of the distal clavicle with respect to the acromion is unchanged. Postoperative changes are again seen. No acute fracture identified. Electronically signed by: Chelsy Brewster MD (04/02/2021 2:30 PM) [id number] DICTATED and SIGNED BY: CHELSY BREWSTER MD DATE: 04/02/21 [id number] Indication: Joint dislocation Consent: Consent was obtained. Procedure: The pre-reduction exam showed distal perfusion and neurologic function to be normal.. The patient was placed in the appropriate position. Anesthesia/pain control with propofol. Reduction of the left shoulder was performed by traction/countertraction method. Post reduction films were obtained and revealed satisfactory reduction. A post-reduction exam revealed distal perfusion and neurologic function to be normal. The affected area was immobilized with left shoulder immobilizer. The patient tolerated the procedure well. Complications: none. Xray imaging recommending axillary or tangential view. I spoke to radiology. Pt does not feel comfortable abducting her shoulder stating "I know it's in but if I move my arm out, the shoulder will dislocate again." Indication: Left anterior shoulder dislocation Consent: I have discussed with the patient and/or the patient statement services representative the indication, alternatives, and the possible risks and /or complications of the planned procedure and the anesthesia methods. The patient and/or patient statement services representative appear to understand and agree to proceed. Pre-Sedation Documentation and Exam: ANO x3 Airway Assessment: normal. Prior History of Anesthesia Complications: none. ASA Classification: 1 Sedation/ Anesthesia Plan: Propofol Medications Used: see nursing notes. Monitoring and Safety: The patient was placed on a cardiac rn and vital signs, pulse oximetry and level of consciousness were continuously evaluated throughout the procedure. The patient was closely monitored until recovery from the medications was complete and the patient had returned to baseline status. Respiratory therapy was on standby at all times during the procedure. With normal axillary/median/radial/ulnar nerve sensation intact and equal radial pulses after reduction. (The following sections must be completed) Post-Sedation Vital Signs: Hemodynamically stable Post-Sedation Exam: GCS 15, with decision-making capacity, alert and oriented x3 with steady gait Complications: none. Course & Med Decision Making: Course & Med Decision Making Pertinent Labs and Imaging studies reviewed. (See chart for details) Concern for left anterior shoulder dislocation, reduced with propofol. Patient with no apnea, remains hemodynamically stable. At time of discharge patient with medical decision-making capacity and steady gait. Patient states that shoulder is in place. Will recommend [id number] analgesia. Will discharge home with strict ED return precautions were given for urgent ED return shoulder davies dislocate, neurologic deficits, severe pain or skin color changes. Encouraged urgent outpatient follow-up with PMD and orthopedic surgery. Life-threatening processes were considered but are low suspicion at this time, given history, physical exam and ED workup. Pt was educated on all prescription medications and adverse effects. All patient's questions were answered and pt was stable at time of discharge. Life/limb-threatening differential includes but is not limited to, trauma (fracture, dislocation, laceration, compartment syndrome, tendon or ligament injury), neurovascular injury or deficitcva/tia, infection (osteomyelitis, abscess, cellulitis, septic arthritis, necrotizing fasciitis), deep vein thrombosis, renal/cardiac/liver disease, medication adverse effect, lymphedema/anasarca, vascular insufficiency or malignancy, I have spoken with the patient and/or caregivers. I explained the patient's condition, diagnoses and treatment plan based on the information available to me at this time. I have answered the patient and/or caregiver's questions and addressed any concerns. The patient and/or caregivers have a good understanding of patient's diagnosis, condition and treatment plan as can be expected at this point. Vital signs have been stable. Patient's condition is stable and a ppropriate for discharge from the emergency department. Patient will pursue further outpatient evaluation with primary care physician or other designated or consulting physician as outlined in the discharge instructions. The patient and/or caregivers are agreeable to this plan of care and follow-up instructions have been explained in detail. The patient and/or caregivers have received these instructions in written form and have expressed an understanding of the discharge instructions. The patient and/or caregivers are aware that any significant change of condition or worsening of symptoms should prompt immediate return to this or the closest emergency department or call to 911. Aury Disclaimer: Aury Disclaimer: This electronic medical record was generated, in whole or in part, using a voice recognition dictation system. Departure Departure Impression: Primary Impression: Closed anterior dislocation of left shoulder Disposition: HOME / SELF CARE / HOMELESS Condition: STABLE Referrals: NO PCP (PCP) Follow-up with your primary care physician in 24 to 48 hours OR FOLLOW UP WITH FAMILY MEDICINE: [address], [address] [place] [address] Patient Instructions: Sedation, Moderate, Adult, Shoulder Dislocation Additional Instructions: FOLLOW UP WITH ORTHOPEDICS: FOR DEFINITIVE MANAGEMENT Orthopaedic Surgery [address] [place], [address] [place] [address] EMERGENCY DEPARTMENT GENERAL DISCHARGE INSTRUCTIONS Thank you for coming to [facility] Emergency Department (ED) today and trusting us with you care. We trust that you had a positive experience in our Emergency Department. If you wish to speak to the department management, you may call the Director at [phone]. YOUR FOLLOW UP INSTRUCTIONS ARE FOLLOWS: 1. Do you have a private Doctor? If you do not have a private doctor, please ask for a resource list of physicians or clinics that may be able to assist you with follow up care. 2. The Emergency Physicain has interpreted your x-rays. The X-Ray specialist will also review them. If there is a change in the findings, you will be notified in 48 hours when at all possible. 3. A lab test or culture has been done, your results will be reviewed and you will be notified if you need a change in treatment. ADDITIONAL INSTRUCTIONS AND INFORMATION: 1. Your care today has been supervised by a physician who is specially trained in emergency care. Many problems require more than one evaluation for a complete diagnosis and treatment. We recommend that you schedule your follow up appointment as recommended to ensure complete treatment of you illness or injury. If you are unable to obtain follow up care and continue to have a problem, or if your condition worsens, we recommend that you return to the ED. 2. We are not able to safely determine your condition over the phone nor are we able to give sound medical advice over the phone. For these safety reasons, if you call for medical advice we will ask you to come to the ED for further evaluation. 3. If you have any questions regarding these discharge instructions please call the ED at [phone]. SAFETY INFORMATION: In the interest of safety, wellness, and injury prevention; we encourage you to wear your sealbelt, if you smoke; quite smoking, and we encourage family to use a protective helmet for bicycling and other sporting events that present an increased risk for head injury. IF YOUR SYMPTOMS WORSEN OR NEW SYMPTOMS DEVELOP, OR YOU HAVE CONCERNS ABOUT YOUR CONDITION; OR IF YOUR CONDITION WORSENS WHILE YOU ARE WAITING FOR YOUR FOLLOW UP APPOINTMENT; EITHER CONTACT YOUR PRIMARY CARE DOCTOR, THE PHYSICIAN WHOSE NAME AND NUMBER YOU WERE GIVEN, OR RETURN TO THE ED IMMEDIATELY. MARCUS METZ DO Apr 02, 2021 12:17
[2021-04-02] MEDS ORDERED: fentaNYL PF VIAL 100 MCG/2 ML VIAL IVP ONE (12:30)
[2021-04-02] MEDS ORDERED: IV NORMAL SALINE 1000ML BAG 1,000 ML IV ONE (12:30)
[2021-04-02] MEDS ORDERED: PROPOFOL 10 MG/ML (20ML) VIAL. IV ONE ×3 (12:30→14:30)
[2021-04-02 13:46] VITALS: BP 122/78
--- NOTE | 2021-04-02 14:33 | RAD ---
Exam Date: 04/02/2021 2:22 PM XR SHOULDER_LEFT 2+ VIEWS Indication: Reason: POST REDUCTION / Spl. Instructions: / History: . COMPARISON: Radiographs from earlier the same day FINDINGS/ IMPRESSION: Suspected interval relocation of previously seen glenohumeral joint dislocation, though evaluation is suboptimal in the absence of axillary or tangential views. Elevation of the distal clavicle with re spect to the acromion is unchanged. Postoperative changes are again seen. No acute fracture identif ied. Electronically signed by: Frank Brewster MD (04/02/2021 2:30 PM) [id number]
[2021-04-02] MEDS ORDERED: HYDROmorphone 2 MG/ML VIAL IVP ONE (15:00)
[2021-04-02 15:10] VITALS: BP 138/72
== END 2021-04-02 15:55 | disposition home or self-care (01) ==
LOC: ER 10:55
DX: S43.005A Unspecified dislocation of left shoulder joint, initial encounter (principal); J45.909 Unspecified asthma, uncomplicated; Z72.0 Tobacco use; X50.0XXA Overexertion from strenuous movement or load, initial encounter; Y93.89 Activity, other specified; Y92.89 Other specified places as the place of occurrence of the external cause; Y99.8 Other external cause status
CPT/HCPCS: 23650; 73030; 96361; 96374; 96375; 99285; J1170; J2704; J3010; J7030; 99284

== ENCOUNTER 2021-06-14 00:12 | Emergency (ER) | payer MEDICAID ==
[~2021-06-14] VITALS: Ht 167.6 cm; Wt 79.5 kg
[2021-06-14] MEDS: fentaNYL PF VIAL 100 MCG/2 ML VIAL IVP ONE (00:35)
--- NOTE | 2021-06-14 00:37 | PHYS DOC ---
Past Medical History Past Medical History: Asthma Additional Past Medical Histor: Shoulder dislocation x 3, surgery in 2019 Past Surgical History: Other Additional Past Surgical Histo: MULTIPLE SHOULDER SURGERIES. LEFT AND RIGHT Smoking Status: Light Tobacco Smoker Alcohol Use: None Drug Use: None Adult General Chief Complaint Chief Complaint: SHOULDER INJURY HPI HPI The patient is a 31-year-old female with a history of asthma and recurrent left shoulder dislocations requiring closed reduction in the emergency department. Patient presents for evaluation of left shoulder pain with onset a couple of hours prior to arrival when she lifted something she states "I shouldn't have." States feels similar to prior dislocation. Denies weakness, numbness or tingling to the distal left arm or hand. Alert, pleasantly and appropriately interactive and in no acute distress. Review of Systems Review of Systems A 12 point review of systems was completed and was negative except where noted in HPI above. Current Medications Current Medications Current Medications Medications (Trade) Dose Ordered Sig/Jimmy Start Time Stop Time Status Last Admin Dose Admin Fentanyl Citrate (Fentanyl 2ml Vial) 50 mcg 1X ONCE 06/14/21 00:30 06/14/21 00:31 DC 06/14/21 00:35 50 MCG Propofol (Diprivan) 100 mg 1X ONCE 06/14/21 01:00 06/14/21 01:01 DC 06/14/21 01:22 100 MG Sodium Chloride 1,000 ml @ 1,000 mls/hr 1X ONCE 06/14/21 01:00 06/14/21 01:59 DC 06/14/21 01:20 1,000 MLS/HR Allergies Allergies Allergies Coded Allergies Type Severity Reaction Last Updated Verified Sulfa (Sulfonamide Antibiotics) Allergy Intermediate 02/10/21 Yes cephalexin Allergy Intermediate 02/10/21 Yes ketamine Allergy Intermediate 02/10/21 Yes ketorolac Allergy Intermediate 02/10/21 Yes Physical Exam Physical Exam 31-year-old female appearing nontoxic and in no acute distress. Head is normocephalic and atraumatic. Neck is supple and nontender. Oropharynx is moist. Lungs are clear to auscultation at all stations. There is a normal S1 and S2 without rubs or gallops and capillary refill is appropriate, less than 2 seconds globally. Abdomen is soft, nontender nondistended. Skin is warm and dry without cyanosis, clubbing or edema. Psychiatrically, the patient demonstrates appropriate mood and affect and is alert. Evaluation of the extremities reveals BUEs and BLEs neurovascularly intact distally with strength 5 out of 5, sensation intact to light touch in all nerve distributions, capillary refill less than 2 seconds, hands and feet warm and well-perfused. Moderate discomfort with any attempt at ranging of the left shoulder. Current Patient Data Vital Signs Vital Signs Date Time Temp Pulse Resp B/P (MAP) Pulse Ox O2 Delivery O2 Flow Rate FiO2 06/14/21 00:35 18 06/14/21 00:12 98.2 84 156/110 (125) 95 Room Air 98.2 EKG EKG [] Radiology/Procedures Radiology/Procedures XR shoulder L: L anterior shoulder dislocation, EP interp. Post-reduction: good reduction of L anterior shoulder dislocation, EP interp. Indication: Joint dislocation Consent: Consent was obtained. Procedure: The pre-reduction exam showed distal perfusion and neurologic function to be normal.. The patient was placed in the appropriate position. Anesthesia/pain control with propofol. Reduction of the left shoulder was performed by traction/countertraction method. Post reduction films were obtained and revealed satisfactory reduction. A post-reduction exam revealed distal perfusion and neurologic function to be normal. The affected area was immobilized with left shoulder immobilizer. The patient tolerated the procedure well. Complications: none. Indication: Left anterior shoulder dislocation Consent: I have discussed with the patient and/or the patient printing supplies sales representative the indication, alternatives, and the possible risks and /or complications of the planned procedure and the anesthesia methods. The patient and/or patient printing supplies sales representative appear to understand and agree to proceed. Pre-Sedation Documentation and Exam: AAO x3 Airway Assessment: normal. Prior History of Anesthesia Complications: none. ASA Classification: 1 Sedation/ Anesthesia Plan: Propofol Medications Used: see nursing notes. Monitoring and Safety: The patient was placed on a registered nurse cardiac and vital signs, pulse oximetry and level of consciousness were continuously evaluated throughout the procedure. The patient was closely monitored until recovery from the medications was complete and the patient had returned to baseline status. Respiratory therapy was on standby at all times during the procedure. With normal axillary/median/radial/ulnar nerve sensation intact and equal radial pulses after reduction. (The following sections must be completed) Post-Sedation Vital Signs: Hemodynamically stable Post-Sedation Exam: GCS 15, with decision-making capacity, alert and oriented x3 with steady gait Complications: none. Course & Med Decision Making Course & Med Decision Making We will check plain films and provide analgesia as noted and will then reevaluate. Plan procedural sedation with propofol for closed reduction of the left shoulder if plain films reveal dislocation. Patient understands and agrees with this plan of care. 0146: Left shoulder dislocation reduced as per procedure note by me under procedural sedation. Patient tolerated well and there were no complications. Shoulder immobilizer applied. She is back to her neurocognitive baseline, ambulatory with a narrow, steady gait and ready for discharge home. She plans to take a taxi. She understands that if she feels worse instead of better or develops other new symptoms of concern that she should return to the emergency department right away for reevaluation. All questions are answered. Dragon Disclaimer Dragon Disclaimer This electronic medical record was generated, in whole or in part, using a voice recognition dictation system. Departure Departure Impression: Primary Impression: Recurrent dislocation, left shoulder Disposition: HOME / SELF CARE / HOMELESS Condition: IMPROVED Patient Instructions: Shoulder Dislocation Additional Instructions: Follow-up very closely with your orthopedic physician in the office in the next 2 to 4 days for a reevaluation of your symptoms and a discussion of next best steps in care. Use the shoulder immobilizer; keep it in place until the orthopedic doctor tells you it is okay to remove it. You may use ibuprofen and/or Tylenol as needed for discomfort. Rest, ice and elevate injured areas. Return to the emergency department right away for worsening symptoms of any kind or with any other new symptoms of concern. POLLY MORGAN MD Jun 14, 2021 00:37
[2021-06-14 01:20] VITALS: BP 122/75
[2021-06-14] MEDS: IV NORMAL SALINE 1000ML BAG 1,000 ML IV ONE (01:20)
[2021-06-14] MEDS: PROPOFOL 10 MG/ML (20ML) VIAL. IV ONE (01:22)
--- NOTE | 2021-06-14 01:38 | RAD ---
XR SHOULDER_LEFT 2+ VIEWS History: Reason: pain, probable dislocation / Spl. Instructions: / History: Technique: 3 views left shoulder Comparison: April 02, 2021 Findings: Anterior inferior dislocation of the left humerus in relation to the glenoid. Postoperative changes o f the glenoid. Irregularity of the posterior lateral humeral head, likely related to Bankart defect. Impression: 1. Left anterior inferior glenohumeral dislocation. Electronically signed by: Brett Hernandez DO (06/14/2021 1:36 AM) BROWN
--- NOTE | 2021-06-14 02:08 | RAD ---
XR SHOULDER_LEFT 2+ VIEWS History: Reason: post reduction / Spl. Instructions: / History: Technique: 2 views left shoulder Comparison: June 14, 2021 Findings: Interval reduction left glenohumeral dislocation. Mild residual inferior positioning of the humeral h ead in relation to the glenoid. Postop changes to the glenoid. Posterior lateral humeral head irregul arity, most likely Bankart defect. Impression: 1. Interval reduction left glenohumeral dislocation. Mild inferior positioning of the humeral head i n relation to the glenoid, may relate to joint effusion. Electronically signed by: Brett Hernandez DO (06/14/2021 2:06 AM) BROWN
[2021-06-14 03:00] VITALS: BP 131/81
== END 2021-06-14 03:00 | disposition home or self-care (01) ==
LOC: ER 00:12
DX: M24.412 Recurrent dislocation, left shoulder (principal); J45.909 Unspecified asthma, uncomplicated; Z72.0 Tobacco use; Z88.1 Allergy status to other antibiotic agents; Z88.2 Allergy status to sulfonamides; Z88.4 Allergy status to anesthetic agent; Z88.6 Allergy status to analgesic agent; X50.0XXA Overexertion from strenuous movement or load, initial encounter; Y93.89 Activity, other specified; Y92.89 Other specified places as the place of occurrence of the external cause; Y99.8 Other external cause status
CPT/HCPCS: 23650; 73030; 96361; 96374; 99285; J2704; J3010; J7030

== ENCOUNTER 2021-06-22 15:16 | Emergency (ER) | payer MEDICAID ==
[~2021-06-22] VITALS: Ht 167.6 cm; Wt 77.2 kg
[2021-06-22] MEDS ORDERED: ACETAMINOPHEN 500 MG TABLET PO ONE (16:00)
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
[2021-06-22] MEDS ORDERED: PROPOFOL 10 MG/ML (20ML) VIAL. IV ONE (16:15)
--- NOTE | 2021-06-22 16:15 | RAD ---
XR SHOULDER_LEFT 2+ VIEWS History: Reason: shoulder pain with previous dislocations / Spl. Instructions: / History: Technique: 2 views left shoulder. Comparison: June 14, 2021 Findings: Inferior subluxation of the humeral head in relation to the glenoid. Postop changes of the glenoid. I rregularity posterior lateral humeral head related to Bankart defect. No acute fracture. Impression: 1. Inferior subluxation of the humeral head in relation to the glenoid, similar compared to prior po st reduction radiograph June 14, 2021. Electronically signed by: Brett Hernandez DO (06/22/2021 4:12 PM) [id number]
[2021-06-22 16:31] VITALS: BP 117/85
--- NOTE | 2021-06-22 17:06 | RAD ---
Exam: XR SHOULDER_LEFT 2+ VIEWS History: Postreduction Comparison: 06/22/2021, 06/14/2021 Findings: Osseous mineralization is normal. Normal alignment of the humeral head within the acetabulum. Postsur gical changes of the glenoid with Hill-Sachs deformity of the humeral head. Impression: 1. Interval reduction with now normal alignment at the left shoulder. Electronically signed by: Ben Buck MD (06/22/2021 5:03 PM) [id number]
[2021-06-22] MEDS ORDERED: MORPHINE SULFATE 10 MG/ML VIAL. IM ONE (17:30)
[2021-06-22] MEDS ORDERED: OXYC1TAB15 PO (17:39)
[2021-06-22 17:50] VITALS: BP 121/58
== END 2021-06-22 17:55 | disposition home or self-care (01) ==
LOC: ER 15:16
DX: M24.412 Recurrent dislocation, left shoulder (principal); J45.909 Unspecified asthma, uncomplicated; F17.200 Nicotine dependence, unspecified, uncomplicated; Z88.2 Allergy status to sulfonamides; Z88.1 Allergy status to other antibiotic agents; Z88.8 Allergy status to other drugs, medicaments and biological substances
CPT/HCPCS: 23650; 73030; 96372; 99152; 99285; J2270; J2704

== ENCOUNTER 2021-09-21 07:16 | Day surgery (SDC) | payer SELFPAY ==
[~2021-09-21] VITALS: Ht 167.6 cm; Wt 81.8 kg
[~2021-09-21 07:16] MED LIST changes: +OXYC1TAB15 PO
--- NOTE | 2021-09-21 08:21 | RAD ---
Left shoulder 2 views. HISTORY: Left shoulder pain 2 views were taken of the left shoulder. Comparison is made with a study from June. Humerus is ant eriorly displaced on the Y view similar to the previous dislocation in June. Patient's had previou s surgery on the right shoulder. A fracture is not identified. IMPRESSION: 1. Anterior subluxation or dislocation of the shoulder. 2. No acute fracture. Electronically signed by: Vinod Win MD (09/21/2021 8:18 AM) [id number]
[2021-09-21] MEDS ORDERED: PROPOFOL 10 MG/ML (20ML) VIAL. IV ONE ×2 (08:30→10:46)
[2021-09-21 09:45] VITALS: BP 137/94
[2021-09-21] MEDS ORDERED: KETOROLAC 15 MG/ML VIAL. ONE (10:02)
[2021-09-21] MEDS ORDERED: KETOROLAC 15 MG/ML VIAL. IVP ONE (10:15)
--- NOTE | 2021-09-21 10:23 | PHYS DOC ---
MODERATE SEDATION ASSESSMENT RISKS/ALTERNATIVES Risks/Alternatives Risks and alternatives of this type of sedation and procedure discussed with: RISK/ALTERNATIVES: Patient H & P ON CHART H & P H & P on chart and reviewed for co-morbid conditions and appropriate labs. H&P ON CHART: Yes STATUS PREG STATUS ASSESSED: Yes MEDS/ALLERGIES REVIEWED Meds/Allergies Reviewed Medications and Allergies including time and route of recently administered narcotics and sedatives. MEDS/ALLERGIES REVIEWED: Yes ASA RATING ASA RATING: II AIRWAY ASSESSMENT Airway Assessment Airway patency, oral function limitations, presence of caps, crowns, dentures, partials, and ability to extend neck assessed. AIRWAY ASSESSMENT: Yes MALLAMPATI SCORE MALLAMPATI SCORE: II PRE-SEDATION ASSESSMENT PRE-SEDATION ASSESSMENT: Yes HUSEYIN COY DO Sep 21, 2021 10:23
--- NOTE | 2021-09-21 10:26 | PHYS DOC ---
Past Medical History Past Medical History: Asthma Additional Past Medical Histor: Shoulder dislocation x 3, surgery in 2019 Past Surgical History: Other Additional Past Surgical Histo: MULTIPLE SHOULDER SURGERIES. LEFT AND RIGHT Smoking Status: Current Every Day Smoker Alcohol Use: Occasionally Drug Use: None General Adult EDM: Chief Complaint: SHOULDER INJURY HPI: HPI: Patient is a 31 year old female presents to the ER with a left shoulder injury patient is right-hand dominant. Patient has had multiple surgeries on both rotator cuffs. Patient states that she has had multiple dislocations states that today she fell down the stairs landing on her shoulder. Patient unable to move the left shoulder. Review of Systems: Review of Systems: Constitutional: Denies fever or chills. [] Eyes: Denies change in visual acuity. [] HENT: Denies nasal congestion or sore throat. [] Respiratory: Denies cough or shortness of breath. [] Cardiovascular: Denies chest pain or edema. [] GI: Denies abdominal pain, nausea, vomiting, bloody stools or diarrhea. [] : Denies dysuria. [] Musculoskeletal: Left shoulder injury denies back pain or Integument: Denies rash. [] Neurologic: Denies headache, focal weakness or sensory changes. [] Endocrine: Denies polyuria or polydipsia. [] Lymphatic: Denies swollen glands. [] Psychiatric: Denies depression or anxiety. [] Heart Score: C/O Chest Pain: No Risk Factors: Risk Factors: DM, Current or recent (<one month) smoker, HTN, HLP, family history of CAD, obesity. Risk Scores: Score 0 - 3: 2.5% MACE over next 6 weeks - Discharge Home Score 4 - 6: 20.3% MACE over next 6 weeks - Admit for Clinical Observation Score 7 - 10: 72.7% MACE over next 6 weeks - Early Invasive Strategies Current Medications: Current Medications Medications (Trade) Dose Ordered Sig/Jimmy Start Time Stop Time Status Last Admin Dose Admin Ketorolac Tromethamine (Toradol 15mg Vial) 15 mg 1X ONCE 09/21/21 10:15 09/21/21 10:16 UNV Propofol (Diprivan) 100 mg 1X ONCE 09/21/21 08:30 09/21/21 08:31 DC 09/21/21 10:05 100 MG Allergies: Allergies: Allergies Coded Allergies Type Severity Reaction Last Updated Verified Sulfa (Sulfonamide Antibiotics) Allergy Intermediate 02/10/21 Yes cephalexin Allergy Intermediate 02/10/21 Yes ketamine Allergy Intermediate 02/10/21 Yes ketorolac Allergy Intermediate 02/10/21 Yes Physical Exam: PE: Constitutional: Well developed, well nourished, no acute distress, non-toxic appearance. [] HENT: Normocephalic, atraumatic, bilateral external ears normal, oropharynx moist, no oral exudates, nose normal. [] Eyes: PERRLA, EOMI, conjunctiva normal, no discharge. [] Neck: Normal range of motion, no tenderness, supple, no stridor. [] Cardiovascular:Heart rate regular rhythm, no murmur [] Lungs & Thorax: Bilateral breath sounds clear to auscultation [] Abdomen: Bowel sounds normal, soft, no tenderness, no masses, no pulsatile masses. [] Skin: Warm, dry, no erythema, no rash. [] Back: No tenderness, no CVA tenderness. [] Extremities: Decreased range of motion of the left shoulder. Deformity seen. Neurologic: Alert and oriented X 3, normal motor function, normal sensory function, no focal deficits noted. [] Psychologic: Affect normal, judgement normal, mood normal. [] Current Patient Data: Labs: Laboratory Tests Test 09/21/21 09:33 POC Urine HCG, Qualitative Hcg negative (Negative) Vital Signs: Vital Signs Date Time Temp Pulse Resp B/P (MAP) Pulse Ox O2 Delivery O2 Flow Rate FiO2 09/21/21 09:45 82 18 137/94 77 18 09/21/21 08:18 96 Room Air 09/21/21 07:41 98.1 98.1 EKG: EKG: [] Radiology/Procedures: Radiology/Procedures: []Left shoulder 2 views. HISTORY: Left shoulder pain 2 views were taken of the left shoulder. Comparison is made with a study from June. Humerus is anteriorly displaced on the Y view similar to the previous dislocation in June. Patient's had previous surgery on the right shoulder. A fracture is not identified. IMPRESSION: 1. Anterior subluxation or dislocation of the shoulder. 2. No acute fracture. Course & Med Decision Making: Course & Med Decision Making Pertinent Labs and Imaging studies reviewed. (See chart for details) [] Attempted reduction. Unable to successfully place the shoulder back into place. Patient received 160 of propofol was not successfully sedated. Discussed the case with orthopedics(Dr. Cedillo) will take the patient and r educe. Aury Disclaimer: Aury Disclaimer: This electronic medical record was generated, in whole or in part, using a voice recognition dictation system. Departure Departure Impression: Primary Impression: Shoulder dislocation Patient Instructions: Shoulder Dislocation, [id number] HUSEYIN COY DO Sep 21, 2021 10:26
[2021-09-21] MEDS ORDERED: fentaNYL PF VIAL 100 MCG/2 ML VIAL IVP PRN ×2 (10:45)
[2021-09-21] MEDS ORDERED: PROCHLORPERAZINE 10 MG/2 ML VIAL. IVP PRN (10:45)
[2021-09-21] MEDS ORDERED: IV RINGERS,LACTATED 1000ML 1,000 ML IV SCH (10:45)
[2021-09-21] MEDS ORDERED: MORPHINE SULFATE 2 MG/ML INJ. IVP PRN (10:45)
[2021-09-21] MEDS ORDERED: HYDROmorphone 2 MG/ML INJ. IVP PRN (10:45)
[2021-09-21] MEDS ORDERED: LIDOCAINE 2% PF 5 ML VIAL. ONE (10:46)
--- NOTE | 2021-09-21 10:54 | RAD ---
EXAM: XR SHOULDER_LEFT 2+ VIEWS 09/21/2021 10:16 AM CLINICAL INDICATION: Post reduction COMPARISON: Left shoulder radiograph 09/21/2021 at 7:47 AM TECHNIQUE: AP view of the left shoulder FINDINGS: Unchanged anterior glenohumeral dislocation. There are 2 screws in the humeral head. IMPRESSION: Unchanged anterior glenohumeral dislocation. Electronically signed by: Yane Dyson MD (09/21/2021 10:52 AM) [id number]
[2021-09-21] MEDS ORDERED: MIDAZOLAM HCL/PF 2 MG/2 ML VIAL. ONE (11:06)
[2021-09-21] MEDS ORDERED: fentaNYL PF VIAL 100 MCG/2 ML VIAL ONE (11:06)
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
[2021-09-21] MEDS ORDERED: OXYC1TAB15 PO (11:38)
[2021-09-21] MEDS ORDERED: NAPR-695 PO (11:40)
--- NOTE | 2021-09-21 11:45 | DISCH ---
DISCHARGE INSTRUCTIONS Condition on Discharge Condition on Discharge: Stable Activity After Discharge Activity Instructions for Disc: Other ROM activity Other activity instructions: arm to remain in sling, ok to remove for showering only Lifting Instructions after Dis: No heavy lifting, No pulling or pushing Weight Bearing Status after Di: Non weight bearing Diet after Discharge Diet after Discharge: Regular Wound Incision Care Wound/Incision Care: Ice to area for comfort Contacting the DRDorcas after DC Call your doctor for: Concerns you may have Follow-Up Follow up with: Nguyen in 10-14 days Treatment/Equipment after DC Adaptive Equipment Issued: None RIVER JOHNS II, MD Sep 21, 2021 11:45
[2021-09-21 11:58] VITALS: BP 119/78
--- NOTE | 2021-09-21 12:43 | PDOC4 ---
Operative Note Operative Note Date of procedure: 09/21/2021 Surgeon: Santhosh Johns Java User Interface Developer: ELI Payne Preoperative diagnosis: Left shoulder recurrent anterior instability Postop diagnosis: Same Procedure performed: Closed reduction and examination under anesthesia of left shoulder Anesthesia: Conscious sedation Findings: Shoulder was easily reducible. Examination under anesthesia revealed [id number] was 2+ anteriorly, 2+ posteriorly. Complications: None Reason for procedure: Patient is a 31-year-old female with multiple prior recurrent anterior glenohumeral dislocations at her left shoulder. Please see consult note for further details. Discussion of the risk benefits and alternatives to the above procedure was had and she wished to proceed. Description of procedure: Patient was greeted in the preoperative holding area where the correct extremity was verified and marked. She was taken to the operating room and transferred gently supine to the operating room table and had successful induction of conscious sedation with monitored by the anesthesiology team. After adequate relaxation, traction countertraction method was used to use her shoulder in a gentle fashion. I then used C arm to obtain an AP and axillary lateral to confirm reduction. Examination under anesthesia revealed 180 degrees forward elevation, 45 of external rotation and about 30 of internal rotation as well as the above findings. She was then placed into immobilizer and allowed to awaken. We then transferred her gently supine to the recovery room cart and she was taken to PACU in stable condition. Postoperative plan is to have her remain in the immobilizer, nonweightbearing, we will follow-up with her in 10 to 14 days in outpatient clinic. SANTHOSH JOHNS II, MD Sep 21, 2021 12:43
== END 2021-09-21 23:00 | disposition home or self-care (01) ==
LOC: ER 07:16 → UNDOADMOB 10:57 → ED HOLD 10:57 → SURG 10:57 → ED HOLD 13:00 → SURG 23:00
PROVIDERS: ATTEND Orthopaedic Surgery Sports Medicine
DX: M25.312 Other instability, left shoulder (principal); Z79.899 Other long term (current) drug therapy; Z98.890 Other specified postprocedural states; Z88.1 Allergy status to other antibiotic agents; Z88.2 Allergy status to sulfonamides; Z88.8 Allergy status to other drugs, medicaments and biological substances
CPT/HCPCS: 23650; 73030; 76000; 81025; 87426; A4930; J2250; J2704; J3010; 99285-25

== ENCOUNTER 2021-10-11 07:59 | Emergency (ER) | payer SELFPAY ==
[~2021-10-11] VITALS: Ht 167.6 cm; Wt 80.6 kg
[~2021-10-11 07:59] MED LIST changes: +NAPR-695 PO
[2021-10-11 08:11] VITALS: BP 140/98
[2021-10-11] MEDS ORDERED: IV NORMAL SALINE 1000ML BAG 1,000 ML IV ONE (08:30)
[2021-10-11] MEDS ORDERED: fentaNYL PF VIAL 100 MCG/2 ML VIAL IVP ONE ×2 (08:30→09:45)
[2021-10-11 09:39] LABS: PREG TEST PT QUAL NEGATIVE (NEG)
[2021-10-11 09:43] VITALS: BP 126/93
[2021-10-11] MEDS ORDERED: PROPOFOL 10 MG/ML (20ML) VIAL. IV ONE (09:45)
--- NOTE | 2021-10-11 10:25 | PHYS DOC ---
Past Medical History Past Medical History: Asthma Additional Past Medical Histor: Shoulder dislocations, surgery in 2019 Past Surgical History: Other Additional Past Surgical Histo: MULTIPLE SHOULDER SURGERIES. LEFT AND RIGHT Smoking Status: Current Every Day Smoker Additional Information: VAPE Alcohol Use: Rarely Drug Use: None General Adult EDM: Chief Complaint: SHOULDER INJURY HPI: HPI: Patient is a 31 year old [f__sex] who presents with [] Review of Systems: Review of Systems: Constitutional: Denies fever or chills Eyes: Denies redness or eye pain HENT: Denies nasal congestion or sore throat Respiratory: Denies cough or shortness of breath Cardiovascular: Denies chest pain or palpitations GI: Denies abdominal pain, nausea, or vomiting : Denies dysuria or hematuria Musculoskeletal: Denies back pain or joint pain Integument: Denies rash or skin lesions Neurologic: Denies headache, focal weakness or sensory changes Complete systems were reviewed and found to be within normal limits, except as documented in this note. Current Medications: Current Medications Medications (Trade) Dose Ordered Sig/Jimmy Start Time Stop Time Status Last Admin Dose Admin Fentanyl Citrate (Fentanyl 2ml Vial) 100 mcg 1X ONCE 10/11/21 09:45 10/11/21 09:47 DC 10/11/21 09:50 100 MCG Propofol (Diprivan) 150 mg 1X ONCE 10/11/21 09:45 10/11/21 10:12 DC 10/11/21 09:56 150 MG Sodium Chloride 1,000 ml @ 1,000 mls/hr 1X ONCE 10/11/21 08:30 10/11/21 09:29 DC 10/11/21 08:50 1,000 MLS/HR Allergies: Allergies: Allergies Coded Allergies Type Severity Reaction Last Updated Verified Sulfa (Sulfonamide Antibiotics) Allergy Intermediate 02/10/21 Yes cephalexin Allergy Intermediate 02/10/21 Yes ketamine Allergy Intermediate 02/10/21 Yes ketorolac Allergy Intermediate 02/10/21 Yes Physical Exam: PE: Constitutional: Well developed, well nourished, no acute distress, non-toxic appearance. [] HENT: Normocephalic, atraumatic, bilateral external ears normal, oropharynx moist, no oral exudates, nose normal. [] Eyes: PERRLA, EOMI, conjunctiva normal, no discharge. [] Neck: Normal range of motion, no tenderness, supple, no stridor. [] Cardiovascular:Heart rate regular rhythm, no murmur [] Lungs & Thorax: Bilateral breath sounds clear to auscultation [] Abdomen: Bowel sounds normal, soft, no tenderness, no masses, no pulsatile masses. [] Skin: Warm, dry, no erythema, no rash. [] Back: No tenderness, no CVA tenderness. [] Extremities: No tenderness, no cyanosis, no clubbing, ROM intact, no edema. [] Neurologic: Alert and oriented X 3, normal motor function, normal sensory function, no focal deficits noted. [] Psychologic: Affect normal, judgement normal, mood normal. [] Current Patient Data: Labs: Laboratory Tests Test 10/11/21 08:50 Serum Test, Qualitative Negative (NEG) Vital Signs: Vital Signs Date Time Temp Pulse Resp B/P (MAP) Pulse Ox O2 Delivery O2 Flow Rate FiO2 10/11/21 09:50 17 10/11/21 09:43 98.2 65 126/93 2.0 62 2.0 66 2.0 10/11/21 08:11 98 Room Air EKG: EKG: [] Radiology/Procedures: Radiology/Procedures: [] Course & Med Decision Making: Course & Med Decision Making Pertinent Labs and Imaging studies reviewed. (See chart for details) Patient stable for discharge with outpatient follow-up with PCP/Orthopedics. Orthopedic referral provided. Patient also requesting referral for pain management. Discussed findings and plan with patient, who acknowledges understanding and agreement. Renettaon Disclaimer: Aury Disclaimer: This electronic medical record was generated, in whole or in part, using a voice recognition dictation system. Departure Departure Impression: Primary Impression: Recurrent dislocation, left shoulder Disposition: 01 HOME / SELF CARE / HOMELESS Condition: STABLE Referrals: UNKNOWN PCP NAME (PCP) RIVER JOHNS II, MD, BRIAN N MD Patient Instructions: Shoulder Dislocation, [id number], Shoulder Immobilizer Scripts Oxycodone/Apap 5-325 (PERCOCET 5-325 MG TABLET ) 1 Each Tablet 0.5-1 TAB PO PRN Q6HRS PRN for PAIN, #10 TAB 0 Refills Prov: MILAD POSADAS DO 10/11/21 MODERATE SEDATION ASSESSMENT* RISKS/ALTERNATIVES Risks/Alternatives Risks and alternatives of this type of sedation and procedure discussed with: H & P ON CHART H & P H & P on chart and reviewed for co-morbid conditions and appropriate labs. MEDS/ALLERGIES REVIEWED Meds/Allergies Reviewed Medications and Allergies including time and route of recently administered narcotics and sedatives. AIRWAY ASSESSMENT Airway Assessment Airway patency, oral function limitations, presence of caps, crowns, dentures, partials, and ability to extend neck assessed. MILAD POSADAS DO October 11, 2021 10:25
[2021-10-11] MEDS ORDERED: OXYC1TAB15 PO (10:32)
--- NOTE | 2021-10-11 12:23 | RAD ---
EXAM: Left shoulder, 2 views. HISTORY: Pain. COMPARISON: 09/21/2021 FINDINGS: 2 views of the left shoulder obtained. There has been no change in anterior left shoulder d islocation. There is also unchanged superior subluxation of the distal clavicle relative to the acrom ion, a component of which may be projectional. There are fixation screws within the glenoid. IMPRESSION: 1. Left glenohumeral joint dislocation. 2. Suspected left acromioclavicular joint subluxation. 3. Postoperative change involving the glenoid. Electronically signed by: Vivienne Smith MD (10/11/2021 8:49 AM) [id number]
--- NOTE | 2021-10-11 12:23 | RAD ---
Left shoulder 2 views. HISTORY: Post reduction 2 views were taken the left shoulder. Humeral heads been reduced into good position. An acute fractur e is not identified. Patient had previous shoulder surgery. Left lung is clear. IMPRESSION: 1. Improved positioning of the left shoulder Electronically signed by: Vinod Win MD (10/11/2021 10:29 AM) [id number]
== END 2021-10-11 10:43 | disposition home or self-care (01) ==
LOC: ER 07:59
DX: M24.412 Recurrent dislocation, left shoulder (principal); F17.200 Nicotine dependence, unspecified, uncomplicated; J45.909 Unspecified asthma, uncomplicated; Z88.1 Allergy status to other antibiotic agents; Z88.2 Allergy status to sulfonamides; Z88.4 Allergy status to anesthetic agent; Z88.6 Allergy status to analgesic agent; X50.9XXA Other and unspecified overexertion or strenuous movements or postures, initial encounter; Y93.89 Activity, other specified; Y92.89 Other specified places as the place of occurrence of the external cause; Y99.8 Other external cause status
CPT/HCPCS: 23650; 73030; 84703; 96360; 99285; J2704; J3010; J7030

== ENCOUNTER 2021-10-18 17:43 | Emergency (ER) | payer SELFPAY ==
[~2021-10-18] VITALS: Ht 167.6 cm; Wt 80.9 kg
--- NOTE | 2021-10-18 18:38 | RAD ---
2 views left shoulder History: Dislocation AP Y view COMPARISON: October 17, 2021 There are threaded screws in the left shoulder seen previously. The humeral head projects anterior me dial and inferior to the glenoid. Impression: Left shoulder anterior dislocation. No change. End impression Electronically signed by: Andres Huang III, MD (10/18/2021 6:36 PM) [facility]
[2021-10-18] MEDS ORDERED: MORPHINE SULFATE 2 MG/ML INJ. IVP ONE ×2 (20:00→21:30)
[2021-10-18] MEDS ORDERED: PROPOFOL 10 MG/ML (20ML) VIAL. IV ONE ×2 (20:15→22:15)
[2021-10-18 20:45] VITALS: BP 121/81
--- NOTE | 2021-10-18 21:13 | RAD ---
Exam: Left shoulder 2 views INDICATION: Post reduction, pain TECHNIQUE: Frontal and transscapular Y views left shoulder Comparisons: Radiograph earlier today FINDINGS: The humeral head is anteriorly displaced contrast Y view. Postoperative changes at the glenoid rim is again noted. No acute fracture identified. Soft tissues are unremarkable. IMPRESSION: Likely anterior subluxation at the glenohumeral joint. Subsequent evaluation of the glenohumeral join t should be performed with axillary views Electronically signed by: James Whitaker MD (10/18/2021 9:10 PM) JENNIFER
[2021-10-18 22:25] VITALS: BP 125/75
--- NOTE | 2021-10-18 23:01 | RAD ---
2 views left shoulder 10:36 PM HISTORY: Postreduction symmetry of the temporal AP Y views COMPARISON: 8:59 PM The humeral head projects over the glenoid and AP view it projects slightly anterior on the lateral v iew but appears improved. The remaining visualized osseous structures appear normal. IMPRESSION: Improved relationship of the glenohumeral joint suggests successful reduction although mild anterior subluxation is possible. If there continues to be clinical concern axillary view could be attempted. Electronically signed by: Andres Huang III, MD (10/18/2021 10:59 PM) [facility]
--- NOTE | 2021-10-18 23:17 | PHYS DOC ---
Past Medical History Past Medical History: Asthma Additional Past Medical Histor: Shoulder dislocations, surgery in 2019 Past Surgical History: Other Additional Past Surgical Histo: Bilateral shoulder surgery Smoking Status: Former Smoker Additional Information: quit 10/14/21 Alcohol Use: Rarely Drug Use: None General Adult EDM: Chief Complaint: SHOULDER INJURY HPI: HPI: Patient is a 31 year old female who presents with left shoulder dislocation. She was seen last night and had a reduction done in the emergency department. States that today she was trying to put a clothing article on where just popped out on its own. Denies any trauma or falls or any other injuries. Denies any altered sensation or loss of motor movement in her elbow or her left wrist. Review of Systems: Review of Systems: Constitutional: Denies fever or chills. [] Eyes: Denies change in visual acuity. [] HENT: Denies nasal congestion or sore throat. [] Respiratory: Denies cough or shortness of breath. [] Cardiovascular: Denies chest pain or edema. [] GI: Denies abdominal pain, nausea, vomiting, bloody stools or diarrhea. [] : Denies dysuria. [] Musculoskeletal: Positive for left shoulder pain Integument: Denies rash. [] Neurologic: Denies headache, focal weakness or sensory changes. [] Endocrine: Denies polyuria or polydipsia. [] Lymphatic: Denies swollen glands. [] Psychiatric: Denies depression or anxiety. [] Heart Score: C/O Chest Pain: No Risk Factors: Risk Factors: DM, Current or recent (<one month) smoker, HTN, HLP, family history of CAD, obesity. Risk Scores: Score 0 - 3: 2.5% MACE over next 6 weeks - Discharge Home Score 4 - 6: 20.3% MACE over next 6 weeks - Admit for Clinical Observation Score 7 - 10: 72.7% MACE over next 6 weeks - Early Invasive Strategies Current Medications: Current Medications Medications (Trade) Dose Ordered Sig/Jimmy Start Time Stop Time Status Last Admin Dose Admin Morphine Sulfate (Morphine Sulfate) 2 mg 1X ONCE 10/18/21 21:30 10/18/21 21:31 DC 10/18/21 21:30 2 MG Propofol (Diprivan) 200 mg 1X ONCE 10/18/21 22:15 10/18/21 22:16 DC 5/17/22 22:29 200 MG Allergies: Allergies: Allergies Coded Allergies Type Severity Reaction Last Updated Verified Sulfa (Sulfonamide Antibiotics) Allergy Intermediate 02/10/21 Yes cephalexin Allergy Intermediate 02/10/21 Yes ketamine Allergy Intermediate 02/10/21 Yes ketorolac Allergy Intermediate 02/10/21 Yes Physical Exam: PE: Constitutional: Well developed, well nourished, no acute distress, non-toxic appearance. [] HENT: Normocephalic, atraumatic, bilateral external ears normal, oropharynx moist, no oral exudates, nose normal. [] Eyes: PERRLA, EOMI, conjunctiva normal, no discharge. [] Neck: Normal range of motion, no tenderness, supple, no stridor. [] Cardiovascular:Heart rate regular rhythm, no murmur [] Lungs & Thorax: Bilateral breath sounds clear to auscultation [] Abdomen: Bowel sounds normal, soft, no tenderness, no masses, no pulsatile masses. [] Skin: Warm, dry, no erythema, no rash. [] Back: No tenderness, no CVA tenderness. [] Extremities: Step-off deformity of the left shoulder, intact radial pulse of the left upper extremity, intact sensation strength in left elbow and wrist, intact sensation over deltoid muscle area Neurologic: Alert and oriented X 3, normal motor function, normal sensory function, no focal deficits noted. [] Psychologic: Affect normal, judgement normal, mood normal. [] Current Patient Data: Vital Signs: Vital Signs Date Time Temp Pulse Resp B/P (MAP) Pulse Ox O2 Delivery O2 Flow Rate FiO2 10/18/21 21:30 96 Room Air 10/18/21 21:00 68 21 10/18/21 18:25 98.5 128/89 (102) 98.5 EKG: EKG: [] Radiology/Procedures: Radiology/Procedures: [] Course & Med Decision Making: Course & Med Decision Making Patient had 2 rounds of procedural sedation performed. The first was done and I felt the shoulder go back in however upon moving and again came out. I contacted orthopedic surgery who recommended that we reattempt the procedure and placed patient in a restrictive sling and swath. The second time the patient had improved alignment. I suspect that she has destruction of her capsule and has chronic subluxation at this point. She will follow-up with orthopedic surgery in their office in 5 to 6 days. Dragon Disclaimer: Dragon Disclaimer: This electronic medical record was generated, in whole or in part, using a voice recognition dictation system. Joint Reduction Procedure Joint Indication: Left shoulder joint dislocation Consent: Consent was obtained. Procedure: The pre-reduction exam showed distal perfusion and neurologic function to be normal.. The patient was placed in the appropriate position. Anesthesia/pain control propofol. Reduction of the left shoulder was performed by external rotation. Post reduction films were obtained and revealed satisfactory reduction. A post-reduction exam revealed distal perfusion and ne urologic function to be normal. The affected area was immobilized with sling and swath. The patient tolerated the procedure well. Complications: none. Departure Departure Impression: Primary Impression: Recurrent dislocation, left shoulder Disposition: HOME / SELF CARE / HOMELESS Condition: STABLE Referrals: NO PCP (PCP) RIVER JOHNS II, MD Patient Instructions: Shoulder Dislocation, [id number] Additional Instructions: Please keep the shoulder in the restrictive sling provided and follow-up with the orthopedic surgeon in their office in 5 to 6 days. Procedural Sedation Proc Sed Indication: Left closed shoulder reduction Consent: I have discussed with the patient and/or the patient underwriting account representative the indication, alternatives, and the possible risks and /or complications of the planned procedure and the anesthesia methods. The patient and/or patient represe ntative appear to understand and agree to proceed. Pre-Sedation Documentation and Exam: Completed with nursing staff, timeout given, Airway Assessment: normal. Prior History of Anesthesia Complications: none. ASA Classification: 1 Sedation/ Anesthesia Plan: Propofol Medications Used: see nursing notes. Monitoring and Safety: The patient was placed on a inspector bicycle and vital signs, pulse oximetry and level of consciousness were continuously evaluated throughout the procedure. The patient was closely monitored until recovery from the medications was complete and the patient had returned to baseline status. Respiratory therapy was on standby at all times during the procedure. (The following sections must be completed) Post-Sedation Vital Signs: Systolic blood pressure 138/92, heart rate 86 Post-Sedation Exam: Patient is alert and oriented Complications: none. Vital Signs Vital Signs Date Time Temp Pulse Resp B/P (MAP) Pulse Ox O2 Delivery O2 Flow Rate FiO2 10/18/21 21:30 96 Room Air 10/18/21 21:00 68 21 10/18/21 18:25 98.5 128/89 (102) 98.5 ALI,AMMAR M MD October 18, 2021 23:17
[2021-10-18 23:20] VITALS: BP 132/84
[2021-10-18] MEDS ORDERED: ACET1TAB56 PO (23:34)
== END 2021-10-18 23:35 | disposition home or self-care (01) ==
LOC: ER 17:43
DX: S43.005A Unspecified dislocation of left shoulder joint, initial encounter (principal); J45.909 Unspecified asthma, uncomplicated; Z87.891 Personal history of nicotine dependence; Z88.1 Allergy status to other antibiotic agents; Z88.4 Allergy status to anesthetic agent; Z88.6 Allergy status to analgesic agent; X50.9XXA Other and unspecified overexertion or strenuous movements or postures, initial encounter; Y93.89 Activity, other specified; Y92.89 Other specified places as the place of occurrence of the external cause; Y99.8 Other external cause status
CPT/HCPCS: 23650; 73030; 96374; 96376; 99285; J2270; J2704

== ENCOUNTER 2021-10-20 22:44 | Emergency (ER) | payer SELFPAY ==
[~2021-10-20] VITALS: Ht 167.6 cm; Wt 80.0 kg
[~2021-10-20 22:44] MED LIST changes: +ACET1TAB56 PO
--- NOTE | 2021-10-21 00:46 | RAD ---
XR SHOULDER_LEFT 2+ VIEWS 10/21/2021 12:36 AM INDICATION: Shoulder dislocation COMPARISON: 10/18/2021 TECHNIQUE: 2 views of the left shoulder are provided. FINDINGS/ IMPRESSION: There may be anterior inferior subluxation without overt dislocation involving the left glenohumeral joint space as compared to prior postreduction examination from 10/18/2021. No regional soft tissue ab normality. Acromioclavicular joint is intact. Electronically signed by: Radha Miller MD (10/21/2021 12:44 AM) PAULA
[2021-10-21 01:30] VITALS: BP 138/93
--- NOTE | 2021-10-21 01:52 | PHYS DOC ---
Past Medical History Past Medical History: Asthma Additional Past Medical Histor: Shoulder dislocations, surgery in 2019 Past Surgical History: No Surgical History Additional Past Surgical Histo: Bilateral shoulder surgery Smoking Status: Former Smoker Alcohol Use: Rarely Drug Use: None General Adult EDM: Chief Complaint: SHOULDER INJURY HPI: HPI: Patient is a 31 year old female who presents with left shoulder pain. I had just reduced the patient's shoulder and placed it in a sling and swath per orthopedic surgery recommendations. She states that today she had to take care of her 3-year-old and had to take it off and it came out of place again. No neurological changes of the hand. Intact sensation and strength of the fingers. No sensation changes over the deltoid region. Review of Systems: Review of Systems: Constitutional: Denies fever or chills. [] Eyes: Denies change in visual acuity. [] HENT: Denies nasal congestion or sore throat. [] Respiratory: Denies cough or shortness of breath. [] Cardiovascular: Denies chest pain or edema. [] GI: Denies abdominal pain, nausea, vomiting, bloody stools or diarrhea. [] : Denies dysuria. [] Musculoskeletal: Denies back pain or joint pain. [] Integument: Denies rash. [] Neurologic: Denies headache, focal weakness or sensory changes. [] Endocrine: Denies polyuria or polydipsia. [] Lymphatic: Denies swollen glands. [] Psychiatric: Denies depression or anxiety. [] Heart Score: C/O Chest Pain: No Risk Factors: Risk Factors: DM, Current or recent (<one month) smoker, HTN, HLP, family history of CAD, obesity. Risk Scores: Score 0 - 3: 2.5% MACE over next 6 weeks - Discharge Home Score 4 - 6: 20.3% MACE over next 6 weeks - Admit for Clinical Observation Score 7 - 10: 72.7% MACE over next 6 weeks - Early Invasive Strategies Current Medications: Current Medications Medications (Trade) Dose Ordered Sig/Jimmy Start Time Stop Time Status Last Admin Dose Admin Morphine Sulfate (Morphine Sulfate) 2 mg 1X ONCE 10/21/21 02:00 10/21/21 02:01 10/21/21 01:39 2 MG Allergies: Allergies: Allergies Coded Allergies Type Severity Reaction Last Updated Verified Sulfa (Sulfonamide Antibiotics) Allergy Intermediate 02/10/21 Yes cephalexin Allergy Intermediate 02/10/21 Yes ketamine Allergy Intermediate 02/10/21 Yes ketorolac Allergy Intermediate 02/10/21 Yes Physical Exam: PE: Constitutional: Well developed, well nourished, no acute distress, non-toxic appearance. [] HENT: Normocephalic, atraumatic, bilateral external ears normal, oropharynx moist, no oral exudates, nose normal. [] Eyes: PERRLA, EOMI, conjunctiva normal, no discharge. [] Neck: Normal range of motion, no tenderness, supple, no stridor. [] Cardiovascular:Heart rate regular rhythm, no murmur [] Lungs & Thorax: Bilateral breath sounds clear to auscultation [] Abdomen: Bowel sounds normal, soft, no tenderness, no masses, no pulsatile masses. [] Skin: Warm, dry, no erythema, no rash. [] Back: No tenderness, no CVA tenderness. [] Extremities: Slight pitting over the left humeral joint, intact 2+ radial pulse Neurologic: Alert and oriented X 3, normal motor function, normal sensory function, no focal deficits noted. [] Psychologic: Affect normal, judgement normal, mood normal. [] Current Patient Data: Vital Signs: Vital Signs Date Time Temp Pulse Resp B/P (MAP) Pulse Ox O2 Delivery O2 Flow Rate FiO2 10/21/21 00:11 98.7 67 20 139/70 (93) 99 Room Air 98.7 EKG: EKG: [] Radiology/Procedures: Radiology/Procedures: [] Course & Med Decision Making: Course & Med Decision Making Pertinent Labs and Imaging studies reviewed. (See chart for details) X-ray just showed subluxation however the patient insisted I try to manipulate the shoulder to get better positioning as this was causing her significant pain. I gave her 2 mg IM morphine and did a reduction like movement which slightly improved alignment. The patient's shoulder capsule I suspect is completely disrupted and she will continue to have issues with subluxation if he removes the splint. I told her this fact and told her to follow-up immediately with orthopedic surgery. She agrees to do so. Aury Disclaimer: Aury Disclaimer: This electronic medical record was generated, in whole or in part, using a voice recognition dictation system. Departure Departure Impression: Primary Impression: Shoulder subluxation, left Disposition: HOME / SELF CARE / HOMELESS Condition: STABLE Referrals: NO PCP (PCP) Patient Instructions: Shoulder Instability, Multidirectional with Rehab- [facility] ASHLEY HERNANDEZ MD October 21, 2021 01:52
[2021-10-21] MEDS ORDERED: MORPHINE SULFATE 2 MG/ML INJ. IM ONE (02:00)
== END 2021-10-21 02:00 | disposition home or self-care (01) ==
LOC: ER 22:44
DX: S43.002A Unspecified subluxation of left shoulder joint, initial encounter (principal); J45.909 Unspecified asthma, uncomplicated; Z87.891 Personal history of nicotine dependence; Z88.1 Allergy status to other antibiotic agents; Z88.2 Allergy status to sulfonamides; Z88.6 Allergy status to analgesic agent; Z88.4 Allergy status to anesthetic agent; X50.9XXA Other and unspecified overexertion or strenuous movements or postures, initial encounter; Y93.89 Activity, other specified; Y92.89 Other specified places as the place of occurrence of the external cause; Y99.8 Other external cause status
CPT/HCPCS: 73030; 96372; 99283; J2270